=== PATIENT | female | born 1985 | race American Indian/Alaskan Native ===

== ENCOUNTER 2017-10-15 11:49 | Outpatient (CLI) | payer BC | END 2017-10-15 11:50 | disposition home or self-care (01) | LOC: LAB 11:49 | PROVIDERS: ATTEND Obstetrics & Gynecology | DX: Z11.3 Encounter for screening for infections with a predominantly sexual mode of transmission (principal) | CPT/HCPCS: 36415; 86592; 86803; 87350; 87806 ==

== ENCOUNTER 2018-03-28 12:04 | Emergency (ER) | payer BC ==
[2018-03-28 12:13] VITALS: BP 176/107
[2018-03-28] MEDS ORDERED: TESSALON PERLES PO ONE (12:25)
[2018-03-28] MEDS ORDERED: MOTRIN PO ONE (12:25)
--- NOTE | 2018-03-28 13:09 | Emergency Department Report ---
- General Chief Complaint: Upper Respiratory Infection Stated Complaint: CHEST INFECTION Time Seen by Provider: 03/28/18 12:20 Source: patient Mode of arrival: Ambulatory Limitations: No Limitations - History of Present Illness Initial Comments: This is a 33-year-old female nontoxic, well nourished in appearance, no acute signs of distress presents to the ED with c/o of productive cough, sore throat, body aches, rhinorrhea, nasal congestion x1 week. Patient describes productive cough as yellow mucus production. Patient denies any sick contact. Patient denies any recent travels, long car, recent hospital stays. Patient denies any calf pain or calf tenderness. Patient denies any chest pain, short of breath, fever, chills, nausea, vomiting, hemoptysis, numbness, tingling, headache or stiff neck. Patient denies any allergies. PMH includes HTN which she takes HCTZ daily. MD Complaint: cough, sore throat, rhinorrhea, nasal congestion -: week(s) (1) Severity: mild Severity scale (0 -10): 8 Quality: aching Consistency: constant Improves With: nothing Worsens With: nothing Associated Symptoms: rhinorrhea, nasal congestion, sore throat, cough. denies: fever, chills, myalgias, diaphoresis, headache, stiff neck, chest pain, shortness of breath, abdominal pain, nausea, vomiting, diarrhea, dysuria, rash, confusion, right sweats, weight loss, epistaxis, hoarseness, ear pain Treatments Prior to Arrival: none - Related Data Previous Rx's Medication Instructions Recorded Last Taken Type Diphenoxylate/Atropine [Lomotil] 1 tab PO Q4H PRN #10 tablet 10/18/13 Unknown Rx Hyoscyamine Subl [Levsin Sl] 0.125 mg PO Q4-6H PRN #14 tablet 10/18/13 Unknown Rx Ondansetron [Zofran Odt] 4 mg PO Q4-6H PRN #14 tab.rapdis 10/18/13 Unknown Rx Azithromycin [Zithromax Z-RAI] 250 mg PO DAILY #6 tablet 03/28/18 Unknown Rx Benzonatate [Tessalon Perle] 100 mg PO Q8H PRN 20 Days capsule 03/28/18 Unknown Rx Ibuprofen [Motrin] 600 mg PO Q8H PRN #30 tablet 03/28/18 Unknown Rx Allergies Allergy/AdvReac Type Severity Reaction Status Date / Time No Known Allergies Allergy Unverified 03/28/18 12:13 ED Review of Systems ROS: Stated complaint: CHEST INFECTION Other details as noted in HPI Constitutional: denies: chills, fever Eyes: denies: eye pain, eye discharge, vision change ENT: throat pain. denies: ear pain Respiratory: cough. denies: shortness of breath, wheezing Cardiovascular: denies: chest pain, palpitations Endocrine: no symptoms reported Gastrointestinal: denies: abdominal pain, nausea, diarrhea Genitourinary: denies: urgency, dysuria, discharge Musculoskeletal: denies: back pain, joint swelling, arthralgia Skin: denies: rash, lesions Neurological: denies: headache, weakness, paresthesias Psychiatric: denies: anxiety, depression Hematological/Lymphatic: denies: easy bleeding, easy bruising ED Past Medical Hx - Past Medical History Hx Hypertension: Yes Hx Psychiatric Treatment: Yes (anxiety) Hx Asthma: Yes - Surgical History Additional Surgical History: breast reduction-2002,D&C-2017 r/t heavy bleeding - Social History Smoking Status: Never Smoker Substance Use Type: Alcohol - Medications Home Medications: Home Medications Medication Instructions Recorded Confirmed Last Taken Type Diphenoxylate/Atropine [Lomotil] 1 tab PO Q4H PRN #10 tablet 10/18/13 Unknown Rx Hyoscyamine Subl [Levsin Sl] 0.125 mg PO Q4-6H PRN #14 tablet 10/18/13 Unknown Rx Ondansetron [Zofran Odt] 4 mg PO Q4-6H PRN #14 tab.rapdis 10/18/13 Unknown Rx Azithromycin [Zithromax Z-RAI] 250 mg PO DAILY #6 tablet 03/28/18 Unknown Rx Benzonatate [Tessalon Perle] 100 mg PO Q8H PRN 20 Days capsule 03/28/18 Unknown Rx Ibuprofen [Motrin] 600 mg PO Q8H PRN #30 tablet 03/28/18 Unknown Rx ED Physical Exam - General Limitations: No Limitations General appearance: alert, in no apparent distress - Head Head exam: Present: atraumatic, normocephalic - Eye Eye exam: Present: normal appearance Pupils: Present: normal accommodation - ENT ENT exam: Present: mucous membranes moist, normal external ear exam - Expanded ENT Exam Expanded Ear exam: Present: normal external inspection Mouth exam: Present: normal external inspection. Absent: drooling, trismus, muffled voice, tongue normal, tongue elevation, laceration Teeth exam: Present: normal inspection Throat exam: Positive: tonsillar erythema, other (Uvula midline.). Negative: tonsillomegaly, tonsillar exudate, R peritonsillar mass, L peritonsillar mass - Neck Neck exam: Present: normal inspection, full ROM. Absent: tenderness, meningismus, lymphadenopathy - Respiratory Respiratory exam: Present: normal lung sounds bilaterally. Absent: respiratory distress, wheezes, rales, rhonchi, stridor, chest wall tenderness, accessory muscle use, decreased breath sounds, prolonged expiratory - Cardiovascular Cardiovascular Exam: Present: regular rate, normal rhythm, normal heart sounds. Absent: irregular rhythm, systolic murmur, diastolic murmur, rubs, gallop - GI/Abdominal GI/Abdominal exam: Present: soft, normal bowel sounds. Absent: distended, tenderness, guarding, rebound, rigid, diminished bowel sounds - Extremities Exam Extremities exam: Present: normal inspection, full ROM, normal capillary refill - Back Exam Back exam: Present: normal inspection, full ROM - Neurological Exam Neurological exam: Present: alert, oriented X3, normal gait - Psychiatric Psychiatric exam: Present: normal affect, normal mood - Skin Skin exam: Present: warm, dry, intact, normal color. Absent: rash ED Course Vital Signs 03/28/18 03/28/18 12:08 12:55 Temperature 99.2 F Pulse Rate 112 H Respiratory 18 18 Rate Blood Pressure 176/107 O2 Sat by Pulse 99 Oximetry - Reevaluation(s) Reevaluation #1: 03/28/18 13:19 Patient is speaking in full sentences with no signs of distress noted. ED Medical Decision Making - Medical Decision Making This is a 33-year-old female that presents with bronchitis. Patient is stable and was examined by me. Chest x-ray has been obtained and dictated by radiologist with normal exam. Patient is notified of x-ray results with no questions noted. Due to patient having symptoms of upper respiratory infection and worsening I will treat patient empirically with zpak. Patient was instructed to increase hydration, rest and take Motrin for fever episodes. Patient received motrin and tesslone perrls in the ED. Vitals stable. Patient is nonfebrile and normal heart rate. Patient was instructed Follow-up with a primary care doctor in 3-5 days or if symptoms worsen and continue return to emergency room as soon as possible. At time time of discharge, the patient does not seem toxic or ill in appearance. No acute signs of distress noted. Patient agrees to discharge treatment plan of care. No further questions noted by the patient. Critical care attestation.: If time is entered above; I have spent that time in minutes in the direct care of this critically ill patient, excluding procedure time. ED Disposition Clinical Impression: Acute bronchitis Qualifiers: Bronchitis organism: unspecified organism Qualified Code(s): J20.9 - Acute bronchitis, unspecified Disposition: - TO HOME OR SELFCARE Is pt being admited?: No Does the pt Need Aspirin: No Condition: Stable Instructions: Acute Bronchitis (ED) Additional Instructions: Follow-up with a primary care doctor in 3-5 days or if symptoms worsen and continue return to emergency room as soon as possible. Prescriptions: Azithromycin [Zithromax Z-RAI] 250 mg PO DAILY #6 tablet Benzonatate [Tessalon Perle] 100 mg PO Q8H PRN 20 Days capsule PRN Reason: Cough Ibuprofen [Motrin] 600 mg PO Q8H PRN #30 tablet PRN Reason: Pain Referrals: PRIMARY CAREMD [Primary Care Provider] - 3-5 Days RODOLFO PAINTER MD [Staff Physician] - 3-5 Days [facility] [Outside] - 3-5 Days [facility] [Outside] - 3-5 Days Forms: Work/School Release Form(ED)
--- NOTE | 2018-03-28 14:48 | XRay Report ---
FINAL REPORT EXAM: XR CHEST ROUTINE 2V HISTORY: cough COMPARISON: None. TECHNIQUE: Frontal and lateral views of the chest. FINDINGS: The cardiomediastinal silhouette is normal in appearance. The lungs are clear without focal consolidation. There is no pleural effusion or pneumothorax. There is no acute soft tissue or osseous abnormality. IMPRESSION: No acute cardiopulmonary disease.
== END 2018-03-28 14:58 | disposition home or self-care (01) ==
LOC: ED 12:04
DX: J20.9 Acute bronchitis, unspecified (principal); I10 Essential (primary) hypertension; J45.909 Unspecified asthma, uncomplicated; F41.9 Anxiety disorder, unspecified
CPT/HCPCS: 71046; 99283

== ENCOUNTER 2021-10-13 11:39 | Outpatient (CLI) | payer BC, OTHER ==
[2021-10-13] MEDS ORDERED: LACTATED RINGERS 500 ML IV ONE (11:56)
[2021-10-13 13:18] LABS: Bacteria,Urine 2+ /HPF (Negative); Bilirubin,Urine NEG (Negative); Blood,Urine MOD (Negative); Color,Urine Straw (Yellow); Mucus,Urine FEW /HPF; Protein,Urine <15 mg/dL mg/dL (Negative); Urobilinogen,Urine < 2.0 mg/dL (<2.0)
--- NOTE | 2021-10-13 14:22 | Ultrasound Report ---
ULTRASOUND OBSTETRIC LIMITED ULTRASOUND BIOPHYSICAL PROFILE INDICATION / CLINICAL INFORMATION: Well being. Clinical Gestational Age (GA) in weeks, days: 21, 5 TECHNIQUE: Transabdominal. COMPARISON: None available. FINDINGS: BREATHING MOVEMENT = 2 GROSS BODY MOVEMENT = 2 TONE = 2 QUALITATIVE AMNIOTIC FLUID VOLUME = 2 TOTAL BIOPHYSICAL SCORE = 8/8 HEART RATE (beats per minute): 146 ADDITIONAL FINDINGS: None. IMPRESSION: 1. Biophysical Score = 8/8 Signer Name: Josh Pretty DO Signed: 10/13/2021 2:17 PM Workstation Name: [id number]
--- NOTE | 2021-10-13 14:34 | Ultrasound Report ---
US OB transvaginal INDICATION / CLINICAL INFORMATION: cervical length. COMPARISON: None available. FINDINGS/IMPRESSION: Cervical length is noted at 4.3 cm. Signer Name: Josh Pretty DO Signed: 10/13/2021 2:29 PM Workstation Name: [id number]
[2021-10-13] MEDS ORDERED: EPINEPHrine 1 MG/10 ML SYRINGE ONE (16:03)
[2021-10-13] MEDS ORDERED: SODIUM BICARB 8.4% 50 MEQ/50 ML SYRINGE IV ONE (16:03)
[2021-10-14 01:38] VITALS: BP 143/88
== END 2021-10-13 12:00 | disposition home or self-care (01) ==
LOC: TRG 11:39 → APU 11:41 → TRG 12:00 → APU 10-14 02:08
PROVIDERS: ATTEND Obstetrics & Gynecology
DX: O26.852 Spotting complicating pregnancy, second trimester (principal); O13.2 Gestational [pregnancy-induced] hypertension without significant proteinuria, second trimester; M54.50 Low back pain, unspecified; O46.92 Antepartum hemorrhage, unspecified, second trimester; O26.892 Other specified pregnancy related conditions, second trimester; Z3A.21 21 weeks gestation of pregnancy
CPT/HCPCS: 59025; 76817; 76819; 81001; J3490; J0171

== ENCOUNTER 2021-12-11 19:40 | Emergency (ER) | payer SELFPAY ==
[2021-12-11 22:01] VITALS: BP 137/64
== END 2021-12-12 01:20 | disposition left against medical advice (07) ==
LOC: ED 19:40
DX: O26.893 Other specified pregnancy related conditions, third trimester (principal); R06.02 Shortness of breath; R60.0 Localized edema; Z53.21 Procedure and treatment not carried out due to patient leaving prior to being seen by health care provider; Z3A.36 36 weeks gestation of pregnancy; Z59.00 Homelessness unspecified

== ENCOUNTER 2021-12-13 11:54 | Outpatient (CLI) | payer OTHER ==
--- NOTE | 2021-12-13 14:20 | Vascular Lab Report ---
DUPLEX DOPPLER LOWER EXTREMITY VEINS, BILATERAL INDICATION / CLINICAL INFORMATION: Bilateral lower extremity swelling. TECHNIQUE: Duplex doppler imaging was performed through the veins of both lower extremities using gricelda ous compression and other maneuvers. COMPARISON: None available. FINDINGS: RIGHT COMMON FEMORAL VEIN: Negative. RIGHT FEMORAL VEIN: Negative. RIGHT POPLITEAL VEIN: Negative. RIGHT CALF VEINS: Negative. LEFT COMMON FEMORAL VEIN: Negative. LEFT FEMORAL VEIN: Negative. LEFT POPLITEAL VEIN: Negative. LEFT CALF VEINS: Negative. ADDITIONAL FINDINGS: None. IMPRESSION: 1. No sonographic evidence for DVT in either lower extremity. Signer Name: Wesley Randle MD Signed: 12/13/2021 2:15 PM Workstation Name: [id number]
[2021-12-13] MEDS ORDERED: ACETAMINOPHEN 325 MG TAB PO PRN (22:05)
[2021-12-13] MEDS ORDERED: DOCUSATE SODIUM 100 MG CAP PO PRN (22:05)
[2021-12-13] MEDS ORDERED: diphenhydrAMINE 25 MG CAP PO PRN (22:05)
[2021-12-13] MEDS ORDERED: ALUM-MAG HYDROXIDE-SIMETHICONE 200-200-20MG/5ML ORAL LIQD 30 ML PO PRN (22:05)
--- NOTE | 2021-12-13 22:19 | History and Physical Report ---
History of Present Illness Date of examination: 12/13/21 Date of admission: 12/13/21 Chief complaint: "I saw the lung specialist and he would like for me to get an echocardiogram done" History of present illness: @30w3d gestation sent to hospital by office. Pt referred by managed care director for echo and doppler study d/t pt unable to obtain studies outpatient until mid December. 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 Family/Genetic History: hypertension Social history: no significant social history - Obstetrical History Expected Date of Delivery: 02/18/22 Actual Gestation: 30 Week(s) 3 Day(s) : 2 Para: 1 Hx # Term Pregnancies: 0 Number of Pregnancies: 1 Spontaneous Abortions: 0 Induced : 0 Number of Living Children: 1 #1 Infant Gender: Female year: Method of Delivery: Vaginal Gestational age at delivery: 29 Complications: other (PTL) Medications and Allergies Allergies Allergy/AdvReac Type Severity Reaction Status Date / Time codeine Allergy Hives Verified 12/11/21 22:04 Home Medications Medication Instructions Recorded Confirmed Last Taken Type Diphenoxylate/Atropine [Lomotil] 1 tab PO Q4H PRN #10 tablet 10/18/13 Unknown R x Hyoscyamine Subl [Levsin Sl] 0.125 mg PO Q4-6H PRN #14 tablet 10/18/13 Unknown Rx Ondansetron [Zofran Odt] 4 mg PO Q4-6H PRN #14 tab.rapdis 10/18/13 Unknown Rx Azithromycin [Zithromax Z-RAI] 250 mg PO DAILY #6 tablet 03/28/18 Unknown Rx Benzonatate [Tessalon Perle] 100 mg PO Q8H PRN 20 Days capsule 03/28/18 Unknown Rx Ibuprofen [Motrin] 600 mg PO Q8H PRN #30 tablet 03/28/18 Unknown Rx Review of Systems All systems: negative - Vital Signs Vital signs: Vital Signs Pulse Pulse Ox 92 H 99 12/13/21 14:21 12/13/21 14:21 Temp Pulse Resp BP Pulse Ox 90 126/72 96 12/13/21 22:08 12/13/21 15:00 12/13/21 22:08 - Physical Exam Breasts: Positive: deferred Lungs: Positive: Normal air movement Abdomen: Positive: soft, other (obese) Extremities: Positive: normal - Obstetrical FHR: auscultation normal, category 1 Uterine Contraction Monitor Mode: External Uterine Contraction Pattern: Absent Uterine Tone Measurement Phase: Resting Results All other labs normal. O negative Hgb 12.7 Hct 41.6 Plts 299 Rubella Immune RPR nonreactive HbsAg neg HIV neg Hep C negative 24hr protein 266 on 07/22/21 Assessment and Plan Pt reports seeing managed care director for SOB and asthma in . Pt referred for echocardiogram and doppler study of BLE. Pt reports she had unilateral swelling of right leg, now resolved. Doppler study WNL. Echocardiogram completed. Awaiting rayon tester consult for report. POC d/w pt. Questions encouraged and addressed. Pt verbalizes understanding and agrees to POC. Pt states, "I feel so much better since I'm not up running around after my 1yr old". Exam at this time unremarkeable. Pt denies all complaints. VSSAF. Dr Hurtado of [facility] called and aware of pt- agrees to consult. Dr Wright aware. - Patient Problems (1) 30 weeks gestation of Current Visit: Yes Status: Acute Plan to address problem: NST qshift, continuous monitoring if nonreactive (2) High-risk in third trimester Current Visit: Yes Status: Acute Plan to address problem: echocardiogram completed Doppler study completed Cardiology consult pending (3) BMI 50.0-59.9, adult Current Visit: Yes Status: Acute
--- NOTE | 2021-12-14 08:03 | Progress Note ---
Assessment and Plan A: 36 y.o. @ 30.4 wks, SOB, lower extremity swelling. - Patient Problems (1) 30 weeks gestation of Current Visit: Yes Status: Acute Plan to address problem: Continue with NST daily to monitor status. Monitor for s/sx of labor while admitted. (2) Shortness of breath Current Visit: Yes Status: Acute Plan to address problem: Awaiting cardiology read on Echo. Continue to monitor shortness of breath and lower extremity swelling. BP's have been WNL. Currently no s/sx of pre eclampsia. If Echo normal and no further cardiology recommendations, will discharge patient home. Subjective - Subjective Date of service: 12/14/21 Principal diagnosis: IU 30.4 wks, Obs for SOB, swelling Interval history: Pt denies shortness of breath, ARAIZA, blurred vision, chest pain, vaginal bleeding, LOF, ctxs. States that there is movement. Pt states that her shortness of breath has stopped. "I feel like I was just tired and needed some sleep." Pt is eager to go home to her other child who needs a lot of care. We discussed that we have to wait for the Echo to be read and cardiology recommendations. Pt states that she understands. Patient reports: movement normal, no new complaints, no loss of fluid, no vaginal bleeding, no contractions Objective - Vital Signs Vital Signs: Vital Signs - 12hr 12/13/21 12/13/21 12/13/21 21:49 21:58 22:03 Pulse Rate 97 H 94 H 91 H O2 Sat by Pulse 98 97 97 Oximetry 12/13/21 12/13/21 12/13/21 22:08 22:13 22:18 Pulse Rate 90 93 H 94 H O2 Sat by Pulse 96 96 96 Oximetry 12/13/21 12/13/21 12/13/21 22:23 22:28 22:33 Pulse Rate 90 103 H 50 L O2 Sat by Pulse 97 96 87 Oximetry - Exam Cardiovascular: Regular rate Lungs: Normal air movement Abdomen: Present: normal appearance, soft Uterus: Present: normal FHR: category 1 Uterine Contraction Monitor Mode: External Uterine Contraction Pattern: Absent Extremities: edema (+1 edema noted to bilateral lower extremities.)
[2021-12-14] MEDS ORDERED: PRENATAL VIT27-FE FUMARATE-FOLIC ACID VIT TAB PO SCH (10:00)
--- NOTE | 2021-12-14 14:06 | Consultation ---
History of Present Illness Consult date: 12/14/21 Requesting physician: SERGIO HECTOR Consult reason: other (Echocardiogram) History of present illness: Pt is a 36-year-old female 30.4 wks who presented with complaints of dyspnea with exertion x 1 month. Pt states her issues started last year after she was diagnosed with COVID-19 PNA (January 2021). She feels like her breathing never got back to baseline, then she was diagnosed with COVID again in July. She reports that for the past month or so, she has had more difficulty exerting herself and staying active. She denies SOB at rest. She denies orthopnea or PND and states lying flat actually helps her breathing. She does have some swelling in her lower extremities when standing or walking, but it improves with elevation. No additional cardiac complaints. Past History Past Medical History: hypertension, other (asthma) Past Surgical History: denies: CABG, PTCA Social history: denies: smoking, alcohol abuse Family history: CAD, diabetes, stroke Medications and Allergies Allergies Allergy/AdvReac Type Severity Reaction Status Date / Time codeine Allergy Hives Verified 12/11/21 22:04 Home Medications Medication Instructions Recorded Confirmed Last Taken Type Diphenoxylate/Atropine [Lomotil] 1 tab PO Q4H PRN #10 tablet 10/18/13 Unknown Rx Hyoscyamine Subl [Levsin Sl] 0.125 mg PO Q4-6H PRN #14 tablet 10/18/13 Unknown Rx Ondansetron [Zofran Odt] 4 mg PO Q4-6H PRN #14 tab.rapdis 10/18/13 Unknown Rx Azithromycin [Zithromax Z-RAI] 250 mg PO DAILY #6 tablet 03/28/18 Unknown Rx Benzonatate [Tessalon Perle] 100 mg PO Q8H PRN 20 Days capsule 03/28/18 Unknown Rx Ibuprofen [Motrin] 600 mg PO Q8H PRN #30 tablet 03/28/18 Unknown Rx Active Meds: Active Medications Acetaminophen (Acetaminophen 325 Mg Tab) 650 mg PO Q4H PRN PRN Reason: Pain MILD(1-3)/Fever >100.5/ARAIZA Al Hydrox/Mg Hydrox/Simethicone (Alum-Mag Hydroxide-Simethicone [id number]/5ml Oral Liqd 30 Ml) 30 ml PO Q6H PRN PRN Reason: Indigestion Diphenhydramine HCl (Diphenhydramine 25 Mg Cap) 25 mg PO QHS PRN PRN Reason: Insomnia Docusate Sodium (Docusate Sodium 100 Mg Cap) 100 mg PO Q12H PRN PRN Reason: Constipation Last Admin: 12/14/21 09:16 Dose: 100 mg Multivitamins/Iron/Calcium ( Iwd11-Hw Fumarate-Folic Acid Vit Tab) 1 each PO QDAY KITTY Last Admin: 12/14/21 09:16 Dose: 1 each Review of Systems Constitutional: no fever, no chills Ears, nose, mouth and throat: no nasal congestion, no sore throat Cardiovascular: edema, shortness of breath, dyspnea on exertion, no chest pain, no orthopnea, no palpitations, no syncope, no lightheadedness, no paroxysmal nocturnal dyspnea, no claudication Respiratory: shortness of breath, dyspnea on exertion, no cough Gastrointestinal: no abdominal pain, no nausea, no vomiting Genitourinary Female: no dysuria Musculoskeletal: no neck stiffness, no neck pain, no myalgias Integumentary: no rash, no wounds Neurological: no numbness, no tingling, no seizures, no syncope, no vertigo, no headaches Endocrine: no polydipsia, no polyuria Hematologic/Lymphatic: no easy bruising, no easy bleeding Allergic/Immunologic: no anaphylaxis Physical Examination Vital Signs Pulse Pulse Ox 92 H 99 12/13/21 14:21 12/13/21 14:21 General appearance: no acute distress HEENT: Positive: EOMI, Normocephaly, Mucus Membranes Moist Neck: Positive: neck supple, trachea midline. Negative: JVD/HJR Cardiac: Positive: Reg Rate and Rhythm, S1/S2. Negative: Audible Murmur Lungs: Positive: Decreased Breath Sounds Neuro: Positive: Grossly Intact Abdomen: Positive: Soft. Negative: Tender Skin: Negative: Rash Musculoskeletal: No Pain Extremities: Present: edema (trace BLE), warm Results - Imaging and Cardiology Echo: report reviewed Assessment and Plan Echo reviewed - normal LVEF, no significant valvular abnormalities. BLE Dopplers neg for DVT. Recommend compression stockings for LE swelling. Currently stable cardiac status. No objection to discharge from a Cardiology standpoint. Findings and plan discussed with pt at bedside. All questions answered. Pt seen in conjunction with Dr. Bryant, who agrees with the assessment and plan of care. - Patient Problems (1) 30 weeks gestation of Current Visit: Yes Status: Acute (2) Hx of preeclampsia, prior , currently Current Visit: Yes Status: Chronic (3) Morbid obesity Current Visit: Yes Status: Chronic (4) Asthma Current Visit: Yes Status: Chronic Qualifiers: Asthma severity: mild Asthma complication type: uncomplicated (5) Chronic venous insufficiency Current Visit: Yes Status: Suspected (6) Hx of essential hypertension Current Visit: Yes Status: Chronic (7) History of COVID-19 Current Visit: Yes Status: Chronic
--- NOTE | 2021-12-14 16:52 | Event Note ---
Date: 12/14/21 ECHO has been read by cardiology. Now awaiting clearance for d/c home. Appears to be normal.
--- NOTE | 2021-12-14 18:41 | Discharge Summary ---
Providers - Providers Date of Admission: 12/13/2021 Date of discharge: 12/14/21 Attending physician: OUMOU MACK MD 12/13/21 19:14 Consult to Cardiology [CONS] Urgent Consulting Provider: ARTEM MURRAY Reason For Exam: Dyspnea 12/13/21 22:05 Consult to Physician [CONS] Routine Comment: Consulting Provider: ARTI EMERY Physician Instructions: Reason For Exam: echocardiogram Primary care physician: OUMOU MACK MD Hospitalization Reason for admission: observation (d/t swelling and shortness of breath) Discharge diagnosis: other (Undelivered @ 30.3 wks. ) Pertinent studies: Echo and Doppler studies completed and resulted as normal. Hospital course: Pt is doing well and desires discharge home. She was seen by the ostrich farm worker (Dr. Emery/Chris LEDESMA). Spoke with Chris LEDESMA from [facility]. Chris LEDESMA states that from the cardiology standpoint patient is cleared for discharge home. Her echo and Doppler studies resulted as normal. Pt states that she feels great. She denies vaginal bleeding, LOF, ctxs, shortness of breath, chest pain, feeling lightheaded or dizzy. Her NST's have been category 1 with no contractions noted, and pt states that there is "a lot of movement." Her VSS have been stable throughout her stay. Pt was discharged home in good condition, ambulatory, and undelivered. Condition at discharge: Good Disposition: 01 HOME / SELF CARE / HOMELESS Plan - Provider Discharge Summary Activity: routine Diet: routine Instructions: routine Additional instructions: [] Smoking cessation referral if applicable(refer to patient education folder for contact #) [] Refer to [facility] Booklet Call your doctor immediately for: * Fever > 100.5 * Heavy vaginal bleeding ( >1 pad per hour) * Severe persistent headache * Shortness of breath * Reddened, hot, painful area to leg or breast * Drainage or odor from incision. * Keep incision clean and dry at all times and follow doctor's instructions regarding bathing/showering - Follow up plan Follow up: OUMOU MACK MD [Primary Care Provider] - 7 Days (- Please keep your scheduled appointments with [facility], [facility], and the pulomonologist. - Please give our office at call if you experience decreased movement, vaginal bleeding, you think your water broke, painful regular contractions, chest pain, shortness of breath, feelings of being dizzy or lightheaded. - Should you have any questions or concerns after discharge, please do not hesitate to call our office at [phone]. )
[2021-12-14 18:44] VITALS: BP 98/53
== END 2021-12-14 18:55 | disposition home or self-care (01) ==
LOC: TRG 11:54 → LD 11:57 → TRG 12-14 18:55
PROVIDERS: ATTEND Student in an Organized Health Care Education/Training Program
DX: O26.893 Other specified pregnancy related conditions, third trimester (principal); Z20.822 Contact with and (suspected) exposure to COVID-19; Z3A.31 31 weeks gestation of pregnancy
CPT/HCPCS: 59025; 93970; C8929; U0003; 93306

== ENCOUNTER 2022-02-10 20:22 | Inpatient (IN) | payer BC, OTHER ==
[2022-02-10] MEDS ORDERED: LIDOCAINE (2%) 20 MG/1 ML VIAL 20 ML MDV INFILTRATI ONE (20:24)
[2022-02-10] MEDS ORDERED: TERBUTALINE 1 MG/1 ML INJ SUB-Q PRN (20:24)
[2022-02-10] MEDS ORDERED: BUTORPHANOL 2 MG/1 ML INJ IV PRN (20:24)
[2022-02-10] MEDS ORDERED: PROMETHAZINE 25 MG TAB PO PRN (20:24)
[2022-02-10] MEDS ORDERED: CARBOPROST TROMETHAMINE 250 MCG/1 ML INJ IM PRN (20:24)
[2022-02-10] MEDS ORDERED: MINERAL OIL 30 ML ORAL LIQD PO PRN (20:24)
[2022-02-10] MEDS ORDERED: ONDANSETRON 4 MG/2 ML INJ IV PRN (20:24)
[2022-02-10] MEDS ORDERED: OXYTOCIN 10 UNIT/1 ML INJ IM PRN (20:24)
[2022-02-10] MEDS ORDERED: fentaNYL 100 MCG/2 ML INJ IV PRN (20:24)
[2022-02-10] MEDS ORDERED: LOPERAMIDE 2 MG CAP PO PRN (20:24)
[2022-02-10] MEDS ORDERED: miSOPROStol 200 MCG TAB PR PRN (20:24)
[2022-02-10] MEDS ORDERED: ACETAMINOPHEN 325 MG TAB PO PRN (20:24)
[2022-02-10] MEDS ORDERED: NALOXONE 0.4 MG/1 ML INJ IV PRN (20:24)
[2022-02-10] MEDS ORDERED: ePHEDrine SULFATE 50 MG/1 ML INJ IV PRN (20:24)
[2022-02-10] MEDS ORDERED: LACTATED RINGERS 1,000 ML IV SCH (20:30)
--- NOTE | 2022-02-10 20:36 | History and Physical Report ---
History of Present Illness Date of examination: 02/10/22 Date of admission: 02/10/22 20:22 Chief complaint: I'm here for my induction. History of present illness: Pt is a @ 39 wks who presents to labor and delivery for an IOL per [facility] recommendation d/t cHTN and BMI 54+. Her cHTN was controlled initially with hydrochlorothiazide, but that medication was stopped and her blood pressures were WNL without medication. She had a 24 hr urine that resulted as 266 on 07/22/2021. Her last BPP was 8/8 on 01/31. And her last growth u/s was on 01/24 and was 5-11 (21%). Pt with some shortness of breath this being followed by pulmonology. No changes in this shortness of breath. EDC Confirmation: 02/18/2022 Gestational Age: 38.6 weeks on admission Past History : 2 Term Births: 0 Premature Births: 1 Living Children: 1 Para: 1 Mult. Births: 0 Prev : 0 Aborta: 0 Elect. Ab: 0 Spont. Ab: 0 Ectopics: 0 # 1 Delivery date: 11/2020 Weeks Gestation: 29 labor: yes Delivery type: Delivery location: [facility] Sex: Female Comments: Came in in labor. Went to hospital for contractions and bleeding. Had mag for labor. Possible elevated blood pressures. Pre eclampsia?. 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 % Sun Exposure: frequently Family History Risk Factors: Family History of IA in 1 Female Relative Age < 65: yes Family History of IA in 1 Male Relative Age < 55: yes No Dietary Counseling Reason: pn yes PAP Smear History: Date of Last PAP Smear: 07/12/2021 Results: Normal PAP Smear History: Date of Last PAP Smear: 07/04/2021 Results: normal PAP Smear History: Date of Last PAP Smear: 07/04/2021 Results: normal Alcohol Use: no Drug Use: no Past Medical History Anesthesia Complications: negative Anemia: positive Autoimmune Disorder: negative Bleeding Disorder: negative Blood Transfusions: negative Breast Disease: negative Diabetes: negative Heart Disease: negative Hypertension: positive Hepatitis/Liver Disease: negative Kidney Disease/UTI: negative Neurologic/Epilepsy/Migraines: negative Phlebitis/Varicosities: negative Psychiatric: negative Pulmonary Disease/Asthma: negative Thyroid Disease: negative Hospitalizations: negative Surgery (Non-agronomy manager): negative Abnormal PAP: negative SAVANNAH Exposure: negative Infertility: negative Uterine Anomaly: negative Uterine Surgery (not C/S): negative Other Gynecologic Problems: negative Social Hx: Patient is single Smoking History: Patient has never smoked. Infection History Hx of STD: none HIV Risk Eval: no Hepatitis B Risk Eval: low risk Personal hx. of genital herpes: yes Partner hx. of genital herpes: yes Rash, Viral, or Febrile illness since last LMP? no Varicella/Chicken Pox Status: Previous Disease TB Risk: no Genetic History ADVANCED MATERNAL AGE Congenital Heart Defect: Mom: no Dad: no Db Disease: Mom: no Dad: no Thalassemia Mom: no Dad: no Neural Tube Defect Mom: no Dad: no Down's Syndrome Mom: no Dad: no Jamie-Sachs Mom: no Dad: no Sickle Cell Disease/Trait Mom: no Dad: no Hemophilia Mom: no Dad: no Muscular Dystrophy Mom: no Dad: no Cystic Fibrosis Mom: no Dad: no [place] Chorea Mom: no Dad: no Mental Retardation Mom: no Dad: no Fragile X Mom: no Dad: no Other Genetic/Chromosomal Disorder Mom: no Dad: no Child w/other defect Mom: no Dad: no Enviromental Exposures Xray Exposure: no Medication, drug, or alcohol use since LMP: no Chemical/Other Exposure: no Exposure to Cat Liter: no Hx of Parvovirus (Fifth Disease): no Occupational Exposure to Children: none Current Allergies: CODEINE (Critical) Past History Past Medical History: asthma, hypertension, other (Anxiety, Hx of COVID) Past Surgical History: D&C, other (Breast reduction) 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 Family/Genetic History: heart disease Social history: no significant social history - Obstetrical History Expected Date of Delivery: 02/18/22 Actual Gestation: 38 Week(s) 6 Day(s) : 2 Para: 1 Hx # Term Pregnancies: 0 Number of Pregnancies: 1 (At 29 wks) Spontaneous Abortions: 0 Induced : 0 Number of Living Children: 1 Medications and Allergies Allergies Allergy/AdvReac Type Severity Reaction Status Date / Time codeine Allergy Hives Verified 12/11/21 22:04 Home Medications Medication Instructions Recorded Confirmed Last Taken Type Diphenoxylate/Atropine [Lomotil] 1 tab PO Q4H PRN #10 tablet 10/18/13 Unknown Rx Hyoscyamine Subl [Levsin Sl] 0.125 mg PO Q4-6H PRN #14 tablet 10/18/13 Unknown Rx Ondansetron [Zofran Odt] 4 mg PO Q4-6H PRN #14 tab.rapdis 10/18/13 Unknown Rx Azithromycin [Zithromax Z-RAI] 250 mg PO DAILY #6 tablet 03/28/18 Unknown Rx Benzonatate [Tessalon Perle] 100 mg PO Q8H PRN 20 Days capsule 03/28/18 Unknown Rx Ibuprofen [Motrin] 600 mg PO Q8H PRN #30 tablet 03/28/18 Unknown Rx Active Meds: Active Medications Ephedrine Sulfate (Ephedrine Sulfate 50 Mg/1 Ml Inj) 10 mg IV Q2M PRN PRN Reason: Hypotension Mineral Oil (Mineral Oil 30 Ml Oral Liqd) 30 ml PO QHS PRN PRN Reason: Constipation Terbutaline Sulfate (Terbutaline 1 Mg/1 Ml Inj) 0.25 mg SUB-Q ONCE PRN PRN Reason: Hyperstimulation/Hypertonicity Review of Systems All systems: negative Respiratory: shortness of breath - Vital Signs Vital signs: Pt denies ARAIZA, blurred vision, spots before her eyes, chest pain, and upper abdominal pain. Pt has some shortness of breath, but has had this shortness of breath throughout the and it has not gotten worse - Physical Exam Cardiovascular: Regular rate Lungs: Positive: Normal air movement Abdomen: Positive: normal appearance, soft Genitourinary (Female): Positive: normal external genitalia, normal perenium Vulva: both: normal (No lesions seen on exam.) Uterus: Positive: enlarged (Obese, gravid abdomen) Extremities: Positive: edema (+2 pitting edema to hands and feet) Deep Tendon Reflex Grade: Normal +2 - Obstetrical FHR: category 1 Uterine Contraction Monitor Mode: External Cervical Dilatation: 1.5 (Posterior, soft) Cervical Effacement Percentage: 50 station: -3 Results All other labs normal. GBS NEGATIVE O NEGATIVE ANTIBODY SCREEN NEGATIVE HEP B NEGATIVE HEP C NEGATIVE RUBELLA IMMUNE Assessment and Plan A: 36 y.o. @ 38.6 wks, IOL d/t cHTN. Morbid obesity. - Patient Problems (1) with 38 completed weeks gestation Current Visit: Yes Status: Acute Plan to address problem: Monitor status through EFM. (2) Morbid obesity Current Visit: No Status: Chronic Plan to address problem: Consider internal monitor placement after AROM. - When able to safely AROM patient during labor process. (3) HTN (hypertension) Current Visit: Yes Status: Chronic Qualifiers: Hypertension type: primary hypertension Qualified Code(s): I10 - Essential (primary) hypertension Plan to address problem: Admit to labor and delivery. Initiate IV. Draw admission labs. Initiate IOL with Cervidil. Monitor blood pressures. Pain management: IV pain medication and epidural when more active. Monitor for s/sx of Pre-eclampsia.
[2022-02-10] MEDS ORDERED: OXYTOCIN DRIP 30 UNITS/500 ML BAG IV SCH (21:00)
[2022-02-10] MEDS ORDERED: DINOPROSTONE 10 MG VAG SUPP VG ONE (22:00)
[2022-02-10 22:46] LABS: Hematocrit 30.5 % (30.3-42.9); Hemoglobin 9.3 gm/dl (10.1-14.3); Mean Corpuscular HGB Conc 31 % (30-34); Mean Corpuscular Volume 72 fl (79-97); Platelet Count 247 K/mm3 (140-440); Red Blood Count 4.22 M/mm3 (3.65-5.03); Red Cell Distribution Width 16.1 % (13.2-15.2)
--- NOTE | 2022-02-10 23:35 | Ultrasound Report ---
US OB limited INDICATION / CLINICAL INFORMATION: presentation COMPARISON: OB ultrasound 10/13/2021. TECHNIQUE: Using a transcutaneous probe, multiple grayscale, color Doppler, and spectral Doppler imag es of the uterus and fetus were captured and stored. FINDINGS: Clinical estimated gestational age based on LMP of 05/14/2021 is 38 weeks 6 days. Single cephalic fetus is present, rate of 160 bpm. IMPRESSION: 1. Fetus lies in cephalic orientation at the time of image acquisition. Signer Name: Fab Paz II, MD Signed: 02/10/2022 11:30 PM Workstation Name: [id number]
[2022-02-11] MEDS ORDERED: ZOLPIDEM 5 MG TAB PO PRN (00:59)
[2022-02-11 02:09] LABS: Alanine Aminotransferase 13 units/L (7-56)
[2022-02-11 04:20] LABS: Uric Acid 5.3 mg/dL (3.5-7.6)
--- NOTE | 2022-02-11 04:52 | Event Note ---
Date: 02/11/22 Received a call from RN that patient was crying out in pain requesting an epidural. Upon arrival to room, patient was crying laying on her side stating that she can not take the pain any longer. She was given Stadol and Fentanyl IV without relief Cervical exam /-2, no bag felt. Anesthesia being called to evaluate. Cervidil removed. Will start Pitocin and re-examine cervix once epidural placed.
[2022-02-11] MEDS ORDERED: NALOXONE 0.4 MG/1 ML INJ IV PRN (04:57)
[2022-02-11] MEDS ORDERED: ePHEDrine SULFATE 50 MG/1 ML INJ IV PRN (04:57)
[2022-02-11] MEDS ORDERED: fentaNYL-BUPIV 2 MCG/ML-0.125% 200 MCG/100 ML BAG EPIDURAL SCH (04:57)
--- NOTE | 2022-02-11 05:41 | Anesthesia Consultation ---
Anesthesia Consult and Med Hx Date of service: 02/11/22 - Airway Anesthetic Teeth Evaluation: Good ROM Head & Neck: Adequate Mental/Hyoid Distance: Adequate Mallampati Class: Class III Intubation Access Assessment: Possibly Difficult - Pulmonary Exam CTA: Yes - Cardiac Exam Cardiac Exam: RRR - Pre-Operative Health Status ASA Pre-Surgery Classification: ASA2 Proposed Anesthetic Plan: Epidural - Pulmonary Hx Smoking: No Hx Asthma: Yes Hx Respiratory Symptoms: No SOB: No COPD: No Home Oxygen Therapy: No Hx Pneumonia: No Hx Sleep Apnea: No - Cardiovascular System Hx Hypertension: Yes Hx Coronary Artery Disease: No Hx Heart Attack/AMI: No Hx Angina: No Hx Percutaneous Transluminal Coronary Angioplasty (PTCA): No Hx Cardia Arrhythmia: No Hx Pacemaker: No Hx Internal Defibrillator: No Hx Valvular Heart Disease: No Hx Heart Murmur: No Hx Peripheral Vascular Disease: No - Central Nervous System Hx Neuromuscular Disorder: No Hx Seizures: No CVA: No Hx Back Pain: No Hx Psychiatric Problems: Yes (depression) - Gastrointestinal Hx Ulcer: No Hx Gastroesophageal Reflux Disease: No - Endocrine Hx Renal Disease: No Hx End Stage Renal Disease: No Hx Cirrhosis: No Hx Liver Disease: No Hx Insulin Dependent Diabetes: No Hx Non-Insulin Dependent Diabetes: No Hx Thyroid Disease: No Hx Hypothyroidism: No Hx Hyperthyroidism: No - Hematic Hx Anemia: No Hx Sickle Cell Disease: No - Other Systems Hx Alcohol Use: No Hx Substance Use: No Hx Cancer: No Hx Obesity: No
--- NOTE | 2022-02-11 05:41 | Anesthesia Day of Surgery ---
Anesthesia Day of Surgery - Day of Surgery Patient Examined: Yes Patient H&P Reviewed: Yes Patient is NPO: Yes Beta Blockers: No Cardiac Clearance: No Pulmonary Clearance: No Huber's Test: Negative
--- NOTE | 2022-02-11 05:43 | Progress Note ---
Labor Epidural - Labor Epidural Start Time: 05:10 Stop Time: 05:22 Performed by:: GEM ARMANDO Procedure: Epidural Requested for Labor Pain. H&P and PT Chart reviewed and consent obtained. Time out performed and the procedure was explained, all questions answered. Patient was placed in a sitting position with monitors applied. The PTs back was prepped and draped in usual sterile fashion. The Skin was localized with 3 mL of 1% lidocaine at L3-L4. A 17-gauge Touhy epidural needle was advanced to GIANNA with saline at 8 cm and no blood/CSF was noted via epidural needle. Epidural catheter was advanced initially but failed to pass. A second attempt was made and successfully passed+ to 12 cm. There was negative aspiration for blood and CSF in the catheter and negative response to a test dose of 3 ml 1.5% lidocaine w/ Epi and a sterile dressing was applied Patient tolerated the procedure well and there were no immediate complications noted.
--- NOTE | 2022-02-11 06:22 | Progress Note ---
Assessment and Plan A: 36 y.o. @ 39 wks, active labor, cHTN. Internal monitoring. Uncomfortable with epidural. P: Anesthesia at bedside evaluating patient. Anticipate . Continue to monitor blood pressures. Continue to monitor for s/sx of Pre-eclampsia. - Patient Problems (1) with 38 completed weeks gestation Current Visit: Yes Status: Acute (2) Morbid obesity Current Visit: No Status: Chronic (3) HTN (hypertension) Current Visit: Yes Status: Chronic Qualifiers: Hypertension type: primary hypertension Qualified Code(s): I10 - Essential (primary) hypertension Subjective - Subjective Date of service: 02/11/22 Principal diagnosis: IUP @ 39 weeks, active labor, cHTN Interval history: Pt uncomfortable with epidural. States pain on right side. Anesthesia at bedside giving a bolus. Patient reports: movement normal, contractions, other (Feeling vaginal pressure.) Objective - Vital Signs Vital Signs: Vital Signs - 12hr 02/10/22 02/10/22 02/10/22 21:06 21:07 21:11 Temperature Pulse Rate 88 85 91 H Respiratory Rate Blood Pressure 152/75 O2 Sat by Pulse 99 100 Oximetry O2 Sat by Pulse Oximetry [ Posterior Bilateral Throughout] 02/10/22 02/10/22 02/10/22 21:16 21:21 21:26 Temperature Pulse Rate 87 83 83 Respiratory Rate Blood Pressure O2 Sat by Pulse 100 99 98 Oximetry O2 Sat by Pulse Oximetry [ Posterior Bilateral Throughout] 02/10/22 02/10/22 02/10/22 21:31 21:36 21:41 Temperature Pulse Rate 76 90 84 Respiratory Rate Blood Pressure O2 Sat by Pulse 99 100 100 Oximetry O2 Sat by Pulse Oximetry [ Posterior Bilateral Throughout] 02/10/22 02/10/22 02/10/22 21:46 21:51 21:52 Temperature Pulse Rate 91 H 91 H Respiratory Rate Blood Pressure O2 Sat by Pulse 100 97 Oximetry O2 Sat by Pulse 98 Oximetry [ Posterior Bilateral Throughout] 02/10/22 02/10/22 02/10/22 21:56 21:59 22:01 Temperature 98.2 F Pulse Rate 90 80 80 Respiratory 18 Rate Blood Pressure 118/59 O2 Sat by Pulse 98 100 Oximetry O2 Sat by Pulse Oximetry [ Posterior Bilateral Throughout] 02/10/22 02/10/22 02/10/22 22:06 22:11 22:16 Temperature Pulse Rate 81 80 77 Respiratory Rate Blood Pressure O2 Sat by Pulse 98 98 99 Oximetry O2 Sat by Pulse Oximetry [ Posterior Bilateral Throughout] 02/10/22 02/10/22 02/10/22 22:21 22:25 22:41 Temperature Pulse Rate 88 95 H Respiratory Rate Blood Pressure O2 Sat by Pulse 100 57 L 87 Oximetry O2 Sat by Pulse Oximetry [ Posterior Bilateral Throughout] 02/10/22 02/10/22 02/10/22 22:42 22:47 22:52 Temperature Pulse Rate 83 85 77 Respiratory Rate Blood Pressure O2 Sat by Pulse 98 98 100 Oximetry O2 Sat by Pulse Oximetry [ Posterior Bilateral Throughout] 02/10/22 02/10/22 02/10/22 23:01 23:06 23:11 Temperature Pulse Rate 73 79 84 Respiratory Rate Blood Pressure 158/75 O2 Sat by Pulse 98 98 Oximetry O2 Sat by Pulse Oximetry [ Posterior Bilateral Throughout] 02/10/22 02/10/22 02/10/22 23:16 23:21 23:26 Temperature Pulse Rate 95 H 92 H 76 Respiratory Rate Blood Pressure O2 Sat by Pulse 98 98 99 Oximetry O2 Sat by Pulse Oximetry [ Posterior Bilateral Throughout] 02/10/22 02/10/22 02/10/22 23:31 23:36 23:41 Temperature Pulse Rate 77 78 75 Respiratory Rate Blood Pressure O2 Sat by Pulse 98 98 99 Oximetry O2 Sat by Pulse Oximetry [ Posterior Bilateral Throughout] 02/10/22 02/10/22 02/10/22 23:46 23:51 23:56 Temperature Pulse Rate 80 71 71 Respiratory Rate Blood Pressure O2 Sat by Pulse 99 99 99 Oximetry O2 Sat by Pulse Oximetry [ Posterior Bilateral Throughout] 02/10/22 02/11/22 02/11/22 23:59 00:01 00:02 Temperature Pulse Rate 73 82 Respiratory Rate Blood Pressure 134/64 O2 Sat by Pulse 91 94 Oximetry O2 Sat by Pulse Oximetry [ Posterior Bilateral Throughout] 02/11/22 02/11/22 02/11/22 00:06 00:11 00:16 Temperature Pulse Rate 73 70 99 H Respiratory Rate Blood Pressure O2 Sat by Pulse 97 100 99 Oximetry O2 Sat by Pulse Oximetry [ Posterior Bilateral Throughout] 02/11/22 02/11/22 02/11/22 00:21 00:26 00:31 Temperature Pulse Rate 76 68 70 Respiratory Rate Blood Pressure O2 Sat by Pulse 99 100 100 Oximetry O2 Sat by Pulse Oximetry [ Posterior Bilateral Throughout] 02/11/22 02/11/22 02/11/22 00:36 00:41 00:46 Temperature Pulse Rate 69 69 71 Respiratory Rate Blood Pressure O2 Sat by Pulse 100 99 99 Oximetry O2 Sat by Pulse Oximetry [ Posterior Bilateral Throughout] 02/11/22 02/11/22 02/11/22 00:51 00:56 00:59 Temperature Pulse Rate 65 68 82 Respiratory Rate Blood Pressure 138/61 O2 Sat by Pulse 98 98 93 Oximetry O2 Sat by Pulse Oximetry [ Posterior Bilateral Throughout] 02/11/22 02/11/22 02/11/22 01:01 01:06 01:10 Temperature Pulse Rate 71 78 72 Respiratory Rate Blood Pressure O2 Sat by Pulse 99 99 94 Oximetry O2 Sat by Pulse Oximetry [ Posterior Bilateral Throughout] 02/11/22 02/11/22 02/11/22 01:11 01:16 01:21 Temperature Pulse Rate 71 78 83 Respiratory Rate Blood Pressure O2 Sat by Pulse 100 99 99 Oximetry O2 Sat by Pulse Oximetry [ Posterior Bilateral Throughout] 02/11/22 02/11/22 02/11/22 01:53 01:58 01:59 Temperature Pulse Rate 76 67 69 Respiratory Rate Blood Pressure 134/67 O2 Sat by Pulse 97 98 Oximetry O2 Sat by Pulse Oximetry [ Posterior Bilateral Throughout] 02/11/22 02/11/22 02/11/22 02:02 02:03 02:08 Temperature 98.2 F Pulse Rate 70 71 Respiratory 18 Rate Blood Pressure O2 Sat by Pulse 99 99 99 Oximetry O2 Sat by Pulse Oximetry [ Posterior Bilateral Throughout] 02/11/22 02/11/22 02/11/22 02:13 02:18 02:23 Temperature Pulse Rate 72 75 69 Respiratory Rate Blood Pressure O2 Sat by Pulse 99 100 96 Oximetry O2 Sat by Pulse Oximetry [ Posterior Bilateral Throughout] 02/11/22 02/11/22 02/11/22 02:28 02:33 02:38 Temperature Pulse Rate 75 69 71 Respiratory Rate Blood Pressure O2 Sat by Pulse 97 99 98 Oximetry O2 Sat by Pulse Oximetry [ Posterior Bilateral Throughout] 02/11/22 02/11/22 02/11/22 02:43 02:48 02:53 Temperature Pulse Rate 71 67 75 Respiratory Rate Blood Pressure O2 Sat by Pulse 99 99 100 Oximetry O2 Sat by Pulse Oximetry [ Posterior Bilateral Throughout] 02/11/22 02/11/22 02/11/22 02:58 02:59 03:03 Temperature Pulse Rate 69 68 84 Respiratory Rate Blood Pressure 136/71 O2 Sat by Pulse 99 97 Oximetry O2 Sat by Pulse Oximetry [ Posterior Bilateral Throughout] 02/11/22 02/11/22 02/11/22 03:08 03:13 03:18 Temperature Pulse Rate 80 75 88 Respiratory Rate Blood Pressure O2 Sat by Pulse 100 100 97 Oximetry O2 Sat by Pulse Oximetry [ Posterior Bilateral Throughout] 02/11/22 02/11/22 02/11/22 03:23 03:28 03:33 Temperature Pulse Rate 80 81 75 Respiratory Rate Blood Pressure O2 Sat by Pulse 98 99 97 Oximetry O2 Sat by Pulse Oximetry [ Posterior Bilateral Throughout] 02/11/22 02/11/22 02/11/22 03:38 03:43 03:48 Temperature Pulse Rate 81 80 100 H Respiratory Rate Blood Pressure O2 Sat by Pulse 95 98 99 Oximetry O2 Sat by Pulse Oximetry [ Posterior Bilateral Throughout] 02/11/22 02/11/22 02/11/22 03:52 04:45 04:48 Temperature Pulse Rate 109 H 73 76 Respiratory Rate Blood Pressure O2 Sat by Pulse 92 98 94 Oximetry O2 Sat by Pulse Oximetry [ Posterior Bilateral Throughout] 02/11/22 02/11/22 02/11/22 04:50 04:55 04:59 Temperature Pulse Rate 75 82 69 Respiratory Rate Blood Pressure O2 Sat by Pulse 98 99 92 Oximetry O2 Sat by Pulse Oximetry [ Posterior Bilateral Throughout] 02/11/22 02/11/22 02/11/22 05:00 05:05 05:06 Temperature Pulse Rate 78 104 H 107 H Respiratory Rate Blood Pressure O2 Sat by Pulse 97 98 94 Oximetry O2 Sat by Pulse Oximetry [ Posterior Bilateral Throughout] 02/11/22 02/11/22 02/11/22 05:09 05:10 05:15 Temperature Pulse Rate 82 81 88 Respiratory Rate Blood Pressure 141/97 O2 Sat by Pulse 98 98 Oximetry O2 Sat by Pulse Oximetry [ Posterior Bilateral Throughout] 02/11/22 02/11/22 02/11/22 05:20 05:24 05:25 Temperature Pulse Rate 83 81 102 H Respiratory Rate Blood Pressure 143/77 O2 Sat by Pulse 99 98 Oximetry O2 Sat by Pulse Oximetry [ Posterior Bilateral Throughout] 02/11/22 02/11/22 02/11/22 05:29 05:30 05:35 Temperature Pulse Rate 86 82 86 Respiratory Rate Blood Pressure 125/63 122/58 O2 Sat by Pulse 98 97 Oximetry O2 Sat by Pulse Oximetry [ Posterior Bilateral Throughout] 02/11/22 02/11/22 02/11/22 05:40 05:41 05:44 Temperature Pulse Rate 89 86 77 Respiratory Rate Blood Pressure 122/64 129/64 O2 Sat by Pulse 100 Oximetry O2 Sat by Pulse Oximetry [ Posterior Bilateral Throughout] 02/11/22 02/11/22 02/11/22 05:45 05:46 05:47 Temperature Pulse Rate 85 81 79 Respiratory Rate Blood Pressure 131/63 O2 Sat by Pulse 96 90 Oximetry O2 Sat by Pulse Oximetry [ Posterior Bilateral Throughout] 02/11/22 02/11/22 02/11/22 05:50 05:55 06:00 Temperature Pulse Rate 87 86 78 Respiratory Rate Blood Pressure O2 Sat by Pulse 100 95 99 Oximetry O2 Sat by Pulse Oximetry [ Posterior Bilateral Throughout] 02/11/22 02/11/22 02/11/22 06:05 06:10 06:15 Temperature Pulse Rate 79 88 92 H Respiratory Rate Blood Pressure O2 Sat by Pulse 98 98 99 Oximetry O2 Sat by Pulse Oximetry [ Posterior Bilateral Throughout] - Exam Narrative Exam: SROM at some unknown time. Small amount of clear fluid noted at perineum. No bag felt during cervical exam. Cardiovascular: Regular rate Lungs: Normal air movement Abdomen: Present: normal appearance Vulva: both: normal FHR: category 1 Uterine Contraction Monitor Mode: Internal Cervical Dilatation: 6.5 Cervical Effacement Percentage: 90 station: -2 Uterine Contraction Pattern: Regular Uterine Tone Measurement Phase: Resting Uterine Contraction Intensity: Moderate Extremities: edema - Labs Labs: Abnormal Labs 02/10/22 02/11/22 Unknown 01:27 Hgb 9.3 L MCV 72 L MCH 22 L RDW 16.1 H Lactate Dehydrogenase 300 H Laboratory Results - last 24 hr 02/10/22 02/10/22 02/10/22 21:35 Unknown Unknown WBC 8.5 RBC 4.22 Hgb 9.3 L Hct 30.5 MCV 72 L MCH 22 L MCHC 31 RDW 16.1 H Plt Count 247 Creatinine Estimated GFR Uric Acid AST ALT Lactate Dehydrogenase Syphilis IgG/IgM Ab Nonreactive Blood Type O NEGATIVE Antibody Screen Negative 02/11/22 01:27 WBC RBC Hgb Hct MCV MCH MCHC RDW Plt Count Creatinine 0.7 Estimated GFR > 60 Uric Acid 5.3 AST 21 ALT 13 Lactate Dehydrogenase 300 H Syphilis IgG/IgM Ab Blood Type Antibody Screen
--- NOTE | 2022-02-11 07:01 | Progress Note ---
Labor Epidural - Labor Epidural Start Time: 06:35 Stop Time: 06:45 Performed by:: GEM ARMANDO Procedure: Pt complaining that she is not getting relief with first epidural and has requested a second one. Time out performed and the procedure was explained, all questions answered. Patient was placed in a sitting position with monitors applied. The PTs back was prepped and draped in usual sterile fashion. The Skin was localized with 3 mL of 1% lidocaine at L3-L4. A 17-gauge Touhy epidural needle was advanced to GIANNA with saline at 8 cm and no blood/CSF was noted via epidural needle. Epidural catheter successfully placed on first attempt and was advanced to 12 cm. There was negative aspiration for blood and CSF in the catheter and negative response to a test dose of 3 ml 1.5% lidocaine w/ Epi and a sterile dressing was applied Patient tolerated the procedure well and there were no immediate complications noted.
[2022-02-11] MEDS ORDERED: miSOPROStol 100 MCG TAB ONE (08:46)
--- NOTE | 2022-02-11 09:07 | Procedure Note ---
OB Delivery Note - Delivery Date of Delivery: 02/11/22 Clinical Assistant Professor: SHALA EMERY Estimated blood loss: other (600) - Vaginal Delivery presentation: vertex Delivery position: OA Intrapartum events: none Delivery induction: cervidil Delivery monitor: internal FHT, internal uterine Route of delivery: Delivery placenta: spontaneous Delivery cord: 3 umbilical vessels Episiotomy: none Delivery laceration: 1st degree Anesthesia: epidural Delivery comments: baby girl birthed over intact perineum, placed skin to skin on mother's abdomen. 3 vessel cord clamped and cut, cord blood collected. Placenta delivered intact and complete, trailing membranes teased out with ring forceps. 1st degree perineal lac hemostatic - not repaired. Bleeding moderate, short delay in hanging pitocin. fundus massaged, cytotec placed NH. EBL approx 600. Mother and baby stable. All counts correct. Will watch b/p during period, consider mag sulfate x 24hrs for severe range b/ps. - Infant A at 1 minute: 8 at 5 minutes: 9 Gender: Female (7#10 "Liz")
[2022-02-11] MEDS ORDERED: MAGNESIUM SULFATE 40GM/1000ML 40 GM/1,000 ML BAG IV ONE (10:02)
[2022-02-11] MEDS ORDERED: MAGNESIUM SULFATE 40GM/1000ML 40 GM/1,000 ML BAG IV SCH (10:10)
[2022-02-11] MEDS ORDERED: BENZOCAINE/MENTHOL 20/0.5% TOP SPRAY 56 GM TP PRN (10:21)
--- NOTE | 2022-02-11 10:22 | Event Note ---
Date: 02/11/22 notified by RN of b/p's 140's-160's/70's-90's. Will start mag sulfate and Labetalol 200mg PO BID at this time. Close monitoring and strict I&Os.
[2022-02-11] MEDS ORDERED: BENZOCAINE/MENTHOL 20/0.5% TOP SPRAY 56 GM TP ONE (10:24)
[2022-02-11] MEDS ORDERED: ONDANSETRON 4 MG/2 ML INJ IV PRN (11:00)
[2022-02-11] MEDS ORDERED: MAGNESIUM HYDROXIDE (MOM) ORAL LIQD UDC PO PRN (11:00)
[2022-02-11] MEDS ORDERED: PROMETHAZINE 25 MG TAB PO PRN (11:00)
[2022-02-11] MEDS ORDERED: diphenhydrAMINE 25 MG CAP PO PRN (11:00)
[2022-02-11] MEDS ORDERED: WITCH HAZEL/ GLYCERIN PAD TP PRN (11:00)
[2022-02-11] MEDS ORDERED: LANOLIN/ZINC/DIMETHICONE (LANSINOH) 7 GM TP PRN (11:00)
[2022-02-11] MEDS: DOCUSATE SODIUM 100 MG CAP PO SCH (11:37)
[2022-02-11] MEDS: IBUPROFEN 800 MG TAB PO SCH ×2 (11:37→17:13)
[2022-02-11] MEDS: PRENATAL VIT27-FE FUMARATE-FOLIC ACID VIT TAB PO SCH (11:37)
[2022-02-11] MEDS: FERROUS SULFATE 325 MG TAB PO SCH (11:37)
[2022-02-11] MEDS: ACETAMINOPHEN 325 MG TAB PO PRN ×2 (14:45→22:14)
[2022-02-11] MEDS ORDERED: HYDROcodone/ACETAMINOPHEN 5-325 MG TAB PO ONE (18:00)
[2022-02-11 21:37] LABS: Hematocrit 28.9 % (30.3-42.9); Hemoglobin 8.7 gm/dl (10.1-14.3)
[2022-02-12] MEDS: IBUPROFEN 800 MG TAB PO SCH ×4 (00:22→18:16)
[2022-02-12] MEDS ORDERED: LACTATED RINGERS 1,000 ML ONE (01:28)
--- NOTE | 2022-02-12 07:42 | Progress Note ---
Assessment and Plan A: 36 y.o. s/p , cHTN. - Patient Problems (1) HTN (hypertension) Current Visit: Yes Status: Chronic Qualifiers: Hypertension type: primary hypertension Qualified Code(s): I10 - Essential (primary) hypertension Plan to address problem: Continue with magnesium infusion. - d/t be turned off around 1020 am. - Transfer to unit if blood pressures remain stable. Continue to monitor blood pressures. Continue to monitor for s/sx of Pre-eclampsia. Continue with Labetalol 200mg BID. (2) (normal spontaneous vaginal delivery) Current Visit: Yes Status: Acute Plan to address problem: Continue with care. Anticipate discharge home on 02/13. Subjective - Subjective Date of service: 02/12/22 Principal diagnosis: , cHTN, magnesium infusion Interval history: Pt denies ARAIZA, blurred vision, spots before her eyes, chest pain, shortness of breath, and upper abdominal pain. Patient reports: appetite normal, voiding normally, pain well controlled, flatus, ambulating normally : doing well Objective - Vital Signs Latest vital signs: Vital Signs Temp Pulse Resp BP BP Pulse Ox Pulse Ox 02/12/22 07:35 75 99 02/12/22 07:30 79 99 02/12/22 07:26 71 162/81 02/12/22 07:25 70 100 02/12/22 07:20 78 100 02/12/22 07:15 90 100 02/12/22 07:11 73 143/78 02/12/22 07:10 75 99 02/12/22 07:05 68 100 02/12/22 07:00 77 99 02/12/22 06:56 75 130/74 02/12/22 06:55 78 99 02/12/22 06:50 80 92 02/12/22 06:47 73 131/74 02/12/22 06:45 74 100 02/12/22 06:40 79 98 02/12/22 06:35 74 99 02/12/22 06:30 102 H 96 02/12/22 06:25 78 165/96 02/12/22 06:24 75 100 02/12/22 06:19 70 100 02/12/22 06:17 79 177/97 02/12/22 06:14 86 100 02/12/22 06:09 75 99 02/12/22 06:04 79 100 02/12/22 06:03 84 85 02/12/22 05:59 75 100 02/12/22 05:54 82 100 02/12/22 05:49 73 100 02/12/22 05:44 82 100 02/12/22 05:39 63 99 02/12/22 05:34 66 97 02/12/22 05:29 67 98 02/12/22 05:24 69 99 02/12/22 05:19 65 99 02/12/22 05:14 64 99 02/12/22 05:09 66 98 02/12/22 05:04 66 100 02/12/22 05:03 69 166/90 02/12/22 04:59 68 99 02/12/22 04:54 66 100 02/12/22 04:51 73 93 02/12/22 04:49 71 99 02/12/22 04:45 71 91 02/12/22 04:44 69 99 02/12/22 04:39 69 99 02/12/22 04:38 72 90 02/12/22 04:34 67 98 02/12/22 04:29 65 99 02/12/22 04:24 70 98 02/12/22 04:19 68 97 02/12/22 04:14 67 98 02/12/22 04:09 73 99 02/12/22 04:04 69 99 02/12/22 04:02 68 145/84 02/12/22 03:59 68 99 02/12/22 03:54 72 97 02/12/22 03:49 69 99 02/12/22 03:44 67 98 02/12/22 03:39 66 99 02/12/22 03:34 70 98 02/12/22 03:29 70 99 02/12/22 03:24 69 98 02/12/22 03:19 73 96 02/12/22 03:16 68 91 02/12/22 03:14 68 99 02/12/22 03:09 68 100 02/12/22 03:04 68 100 02/12/22 03:03 65 129/71 02/12/22 02:59 63 100 02/12/22 02:54 88 97 02/12/22 02:49 67 98 02/12/22 02:44 67 97 02/12/22 02:39 67 97 02/12/22 02:34 68 97 02/12/22 02:29 70 98 02/12/22 02:24 68 98 02/12/22 02:19 65 98 02/12/22 02:14 67 98 02/12/22 02:09 66 98 02/12/22 02:04 66 99 02/12/22 02:02 67 126/76 02/12/22 02:00 98.4 F 02/12/22 01:59 74 99 02/12/22 01:54 87 98 02/12/22 01:49 79 99 02/12/22 01:44 78 99 02/12/22 01:39 81 99 02/12/22 01:34 77 99 02/12/22 01:29 86 98 02/12/22 01:24 90 99 02/12/22 01:19 68 99 02/12/22 01:14 70 98 02/12/22 01:09 66 99 02/12/22 01:04 71 97 02/12/22 01:03 73 121/68 02/12/22 01:02 80 88 02/12/22 00:59 77 98 02/12/22 00:55 75 93 02/12/22 00:54 70 98 02/12/22 00:49 74 100 02/12/22 00:44 69 97 02/12/22 00:39 68 98 02/12/22 00:34 69 97 02/12/22 00:29 68 99 02/12/22 00:24 78 99 02/12/22 00:19 84 97 02/12/22 00:14 73 93 02/12/22 00:09 69 94 02/12/22 00:04 73 94 02/12/22 00:03 72 100/57 02/12/22 00:00 74 94 22 23:59 71 95 0722 23:55 76 94 22 23:54 75 95 22 23:49 71 96 22 23:44 85 99 02/11/22 23:39 91 H 99 07 23:34 81 99 0722 23:29 83 99 0722 23:24 85 98 02/11/22 23:19 75 100 02/11/22 23:16 80 140/81 02/11/22 23:14 84 98 02/11/22 23:13 98.5 F 80 16 99 02/11/22 23:10 78 138/79 02/11/22 23:09 98.1 F 84 16 138/79 100 02/11/22 23:04 80 100 02/11/22 23:03 73 154/93 02/11/22 22:59 82 99 02/11/22 22:54 89 99 02/11/22 22:52 82 91 02/11/22 22:49 68 97 02/11/22 22:44 69 99 02/11/22 22:39 72 100 02/11/22 22:34 67 99 02/11/22 22:29 78 98 02/11/22 22:24 74 99 02/11/22 22:19 87 140/91 99 02/11/22 22:14 92 H 100 02/11/22 22:09 79 96 02/11/22 22:04 90 98 02/11/22 21:59 69 97 02/11/22 21:54 69 98 02/11/22 21:49 78 99 02/11/22 21:44 70 98 02/11/22 21:39 74 98 02/11/22 21:34 68 100 02/11/22 21:29 82 99 02/11/22 21:24 90 100 02/11/22 21:19 78 99 02/11/22 21:14 77 98 02/11/22 21:09 70 98 02/11/22 21:04 73 99 02/11/22 21:03 72 123/65 02/11/22 20:59 79 99 02/11/22 20:54 88 99 02/11/22 20:49 80 99 02/11/22 20:44 82 98 02/11/22 20:39 75 98 02/11/22 20:34 81 99 02/11/22 20:29 82 99 02/11/22 20:24 75 98 02/11/22 20:19 78 98 02/11/22 20:14 88 98 02/11/22 20:09 83 99 02/11/22 20:04 91 H 99 02/11/22 20:02 74 113/57 02/11/22 19:59 85 99 02/11/22 19:56 98.4 F 16 02/11/22 19:54 83 98 02/11/22 19:52 100 02/11/22 18:49 85 99 02/11/22 18:44 79 99 02/11/22 18:39 99 H 98 02/11/22 18:34 85 98 02/11/22 18:29 83 98 02/11/22 18:24 81 99 02/11/22 18:19 80 99 02/11/22 18:17 82 130/81 02/11/22 18:14 84 99 02/11/22 18:09 82 99 02/11/22 18:07 54 L 92 02/11/22 18:05 18 98 02/11/22 18:04 81 100 02/11/22 17:59 104 H 83 L 02/11/22 17:56 81 86 02/11/22 17:54 98 H 87 02/11/22 17:51 87 02/11/22 17:49 51 L 84 02/11/22 17:47 82 132/68 02/11/22 17:46 88 02/11/22 17:41 76 L 02/11/22 17:38 79 L 02/11/22 17:36 84 02/11/22 17:32 66 77 L 02/11/22 17:31 80 L 02/11/22 17:26 80 L 02/11/22 17:19 73 L 02/11/22 17:17 86 140/70 80 L 02/11/22 17:14 80 L 02/11/22 17:10 98.9 F 18 98 02/11/22 17:08 81 L 02/11/22 17:03 67 80 L 02/11/22 16:58 74 0 L 02/11/22 16:57 82 86 02/11/22 16:53 94 H 97 02/11/22 16:52 85 90 02/11/22 16:48 70 98 02/11/22 16:47 65 119/65 91 02/11/22 16:43 69 96 02/11/22 16:38 71 96 02/11/22 16:37 91 H 83 L 02/11/22 16:33 69 98 02/11/22 16:28 82 97 02/11/22 16:23 76 99 02/11/22 16:18 74 97 02/11/22 16:16 81 116/73 02/11/22 16:13 83 98 02/11/22 16:08 83 99 02/11/22 16:03 84 97 02/11/22 16:00 80 18 115/59 100 02/11/22 15:58 80 98 02/11/22 15:53 82 97 02/11/22 15:52 88 02/11/22 15:48 80 97 02/11/22 15:43 82 96 02/11/22 15:38 78 98 02/11/22 15:33 84 98 02/11/22 15:28 92 H 99 02/11/22 15:23 80 98 02/11/22 15:18 95 H 98 02/11/22 15:15 18 98 02/11/22 15:13 89 99 02/11/22 15:08 89 100 02/11/22 15:03 86 100 02/11/22 14:58 83 100 02/11/22 14:53 85 100 02/11/22 14:48 83 100 02/11/22 14:46 77 139/66 02/11/22 14:43 86 100 02/11/22 14:38 90 100 02/11/22 14:33 83 99 02/11/22 14:28 81 100 02/11/22 14:23 92 H 100 02/11/22 14:18 83 99 02/11/22 14:16 84 145/64 02/11/22 14:13 81 99 02/11/22 14:08 85 99 02/11/22 14:03 92 H 98 02/11/22 14:00 18 97 02/11/22 13:58 72 97 02/11/22 13:54 80 94 02/11/22 13:53 79 97 02/11/22 13:48 83 97 02/11/22 13:46 89 105/73 02/11/22 13:43 72 97 02/11/22 13:38 78 96 02/11/22 13:33 73 97 02/11/22 13:28 80 96 02/11/22 13:23 82 97 02/11/22 13:18 78 97 02/11/22 13:16 79 125/70 02/11/22 13:13 90 98 02/11/22 13:08 87 99 02/11/22 13:05 86 113/68 02/11/22 13:03 81 99 02/11/22 13:00 99.0 F 18 97 02/11/22 12:58 87 99 02/11/22 12:53 92 H 98 02/11/22 12:48 75 98 02/11/22 12:43 88 99 02/11/22 12:38 80 99 02/11/22 12:33 89 100 02/11/22 12:30 85 145/70 02/11/22 12:28 91 H 98 02/11/22 12:25 92 H 91 02/11/22 12:23 88 100 02/11/22 12:18 92 H 97 02/11/22 12:13 96 H 99 02/11/22 12:08 80 96 02/11/22 12:03 77 98 02/11/22 11:59 18 99 02/11/22 11:58 88 99 02/11/22 11:53 90 99 02/11/22 11:48 86 99 02/11/22 11:47 86 133/61 02/11/22 11:43 86 99 02/11/22 11:38 96 H 99 02/11/22 11:33 83 99 02/11/22 11:28 92 H 100 02/11/22 11:23 91 H 131/58 99 02/11/22 11:18 97 H 99 02/11/22 11:17 96 H 93 02/11/22 11:16 86 166/87 02/11/22 11:13 78 98 02/11/22 11:08 100 H 97 02/11/22 11:03 94 H 100 02/11/22 11:00 94 H 18 100 02/11/22 10:58 88 100 02/11/22 10:53 95 H 99 02/11/22 10:48 89 100 02/11/22 10:46 88 146/90 02/11/22 10:43 100 H 99 02/11/22 10:38 96 H 100 02/11/22 10:33 94 H 99 02/11/22 10:28 89 100 02/11/22 10:23 94 H 98 02/11/22 10:18 94 H 99 02/11/22 10:15 93 H 147/82 02/11/22 10:13 87 97 02/11/22 10:08 87 99 02/11/22 10:03 94 H 99 02/11/22 10:00 93 H 149/78 02/11/22 09:58 88 98 02/11/22 09:53 91 H 99 02/11/22 09:48 86 99 02/11/22 09:46 85 167/93 02/11/22 09:43 92 H 100 02/11/22 09:38 97.9 F 84 97 02/11/22 09:33 76 100 02/11/22 09:31 86 163/65 02/11/22 09:28 96 H 100 02/11/22 09:23 95 H 96 02/11/22 09:18 104 H 97 02/11/22 09:17 100 H 94 02/11/22 09:16 86 155/98 02/11/22 09:13 91 H 100 02/11/22 09:08 94 H 100 02/11/22 09:03 93 H 100 02/11/22 09:00 93 H 125/78 02/11/22 08:58 85 100 02/11/22 08:56 63 85 02/11/22 08:53 100 02/11/22 08:47 94 H 100 02/11/22 08:45 94 H 140/69 02/11/22 08:33 81 92 02/11/22 08:30 120 H 100 02/11/22 08:26 103 H 82 L 02/11/22 08:25 103 H 100 02/11/22 08:20 120 H 100 02/11/22 08:15 69 161/86 100 02/11/22 08:10 76 100 02/11/22 08:05 74 100 02/11/22 08:00 89 151/94 100 02/11/22 07:55 71 100 02/11/22 07:50 80 100 02/11/22 07:46 71 136/90 02/11/22 07:45 92 H 100 Intake and Output 02/11/22 02/12/22 02/12/22 22:59 06:59 14:59 Output Total 850 1400 Balance -850 -1400 Output: Urine 850 1400 Indwelling Catheter 850 1400 Other: Total, Output Amount 200 400 - Exam Cardiovascular: Present: Regular rate Lungs: Present: Normal air movement Abdomen: Present: normal appearance, soft Uterus: Present: other (Unable to evaluate d/t body habitus. Minimal bleeding noted. ) Extremities: Present: edema (+ 2 noted to lower abdomen, and bilateral lower extremities. ) Deep Tendon Reflex Grade: Normal +2 - Labs Labs: Abnormal lab results 02/11/22 02/11/22 02/11/22 Range/Units 16:13 20:49 20:49 Hgb 8.7 L (10.1-14.3) gm/dl Hct 28.9 L (30.3-42.9) % Magnesium 2.80 H 3.20 H (1.7-2.3) mg/dL 02/12/22 Range/Units 05:44 Hgb (10.1-14.3) gm/dl Hct (30.3-42.9) % Magnesium 3.50 H (1.7-2.3) mg/dL
[2022-02-12] MEDS: FERROUS SULFATE 325 MG TAB PO SCH ×2 (09:54→22:29)
[2022-02-12] MEDS: PRENATAL VIT27-FE FUMARATE-FOLIC ACID VIT TAB PO SCH (09:54)
[2022-02-12] MEDS: DOCUSATE SODIUM 100 MG CAP PO SCH ×2 (09:55→22:30)
[2022-02-12] MEDS: ACETAMINOPHEN 325 MG TAB PO PRN (09:55)
--- NOTE | 2022-02-12 10:40 | Post Anesthesia Evaluation ---
- Post Anesthesia Evaluation Patient Participated: Yes Airway Patent: Yes Stable Respiratory Function: Yes Nausea/Vomiting: No Temp > 96.8F: Yes Pain Manageable: Yes Adequeate Hydration: Yes Anesthesia Complications: No Block Receding Appropriately: Yes Patient on Ventilator: No
[2022-02-13] MEDS: IBUPROFEN 800 MG TAB PO SCH ×3 (00:38→12:14)
--- NOTE | 2022-02-13 08:18 | Discharge Summary ---
Providers - Providers Date of Admission: 02/10/22 20:22 Date of discharge: 02/13/22 Attending physician: DESTINEE ALMANZA Primary care physician: DESTINEE ALMANZA Hospitalization Reason for admission: IOL htn Condition: Good Pertinent studies: post delivery H&H 8.7/28.9 - asymptomatic anemia d/t acute blood loss Procedures: Hospital course: uncomplicated and course Disposition: 01 HOME / SELF CARE / HOMELESS Final Discharge Diagnosis (Prints w/discharge instructions): vaginal Time spent for discharge: 20 - Discharge Diagnoses (1) (normal spontaneous vaginal delivery) Status: Acute (2) HTN (hypertension) Status: Chronic Qualifiers: Hypertension type: primary hypertension Qualified Code(s): I10 - Essential (primary) hypertension Core Measure Documentation - Palliative Care Palliative Care/ Comfort Measures: Not Applicable - Core Measures Any of the following diagnoses?: none Exam - Constitutional Vitals: Temp Pulse Resp BP Pulse Ox 98.2 F 71 18 149/73 98 02/13/22 06:07 02/13/22 06:07 02/13/22 07:37 02/13/22 06:07 02/13/22 06:07 General appearance: Present: no acute distress, well-nourished - EENT Eyes: Present: PERRL ENT: hearing intact - Neck Neck: Present: supple, normal ROM - Respiratory Respiratory effort: normal Respiratory: bilateral: CTA - Cardiovascular Rhythm: regular Heart Sounds: Absent: rub, click - Extremities Extremity abnormal: edema (BLE, panis) Peripheral Pulses: within normal limits - Abdominal General gastrointestinal: Present: soft, non-tender, non-distended, normal bowel sounds Female genitourinary: Present: normal - Integumentary Integumentary: Present: clear, warm, dry - Musculoskeletal Musculoskeletal: gait normal, strength equal bilaterally - Psychiatric Psychiatric: appropriate mood/affect, intact judgment & insight - Neurologic Neurologic: CNII-XII intact, moves all extremities - Additional findings Additional findings: lochia scant, fundus firm, Plan Activity: no restrictions Diet: regular Follow up with: DESTINEE ALMANZA MD [Primary Care Provider] - 7 Days (Congratulations! Please call [phone] to schedule an appointment for a blood pressure check in 1 week. Call for any questions or concerns.) Prescriptions: Ferrous Sulfate [Feosol 325 MG tab] 325 mg PO BID #60 tablet labetaloL [Labetalol 200mg TAB] 200 mg PO BID #60 tab Ibuprofen [Motrin 800 MG tab] 800 mg PO Q8HR PRN #30 tablet PRN Reason: Pain
[2022-02-13 08:38] VITALS: BP 133/73
[2022-02-13] MEDS: DOCUSATE SODIUM 100 MG CAP PO SCH ×2 (10:09→10:13)
[2022-02-13] MEDS: PRENATAL VIT27-FE FUMARATE-FOLIC ACID VIT TAB PO SCH (10:09)
[2022-02-13] MEDS: FERROUS SULFATE 325 MG TAB PO SCH ×2 (10:10→10:13)
[2022-02-13] MEDS: ACETAMINOPHEN 325 MG TAB PO PRN (10:14)
== END 2022-02-13 12:40 | disposition home or self-care (01) | DRG 806 ==
LOC: LD 20:22 → OB 02-12 12:47
PROVIDERS: ADMIT Obstetrics & Gynecology; ATTEND Obstetrics & Gynecology
PROC: 10E0XZZ Delivery of Products of Conception, External Approach (ICD-10-PCS; principal; 2022-02-11)
PROC: 0HQ9XZZ Repair Perineum Skin, External Approach (ICD-10-PCS; 2022-02-11)
PROC: 3E0P7VZ Introduction of Hormone into Female Reproductive, Via Natural or Artificial Opening (ICD-10-PCS; 2022-02-11)
PROC: 3E0R3BZ Introduction of Anesthetic Agent into Spinal Canal, Percutaneous Approach (ICD-10-PCS; 2022-02-11)
PROC: 00HU33Z Insertion of Infusion Device into Spinal Canal, Percutaneous Approach (ICD-10-PCS; 2022-02-11)
PROC: 3E0234Z Introduction of Serum, Toxoid and Vaccine into Muscle, Percutaneous Approach (ICD-10-PCS; 2022-02-11)
DX: O16.4 Unspecified maternal hypertension, complicating childbirth (principal); O98.32 Other infections with a predominantly sexual mode of transmission complicating childbirth; Z37.0 Single live birth; D62 Acute posthemorrhagic anemia; Z3A.38 38 weeks gestation of pregnancy; Z20.822 Contact with and (suspected) exposure to COVID-19; A60.00 Herpesviral infection of urogenital system, unspecified; O99.52 Diseases of the respiratory system complicating childbirth; O99.214 Obesity complicating childbirth; E66.01 Morbid (severe) obesity due to excess calories; O70.0 First degree perineal laceration during delivery; Z3A.37 37 weeks gestation of pregnancy; O90.81 Anemia of the puerperium
CPT/HCPCS: 36415; 59200; 76815; 82565; 83615; 83735; 84450; 84460; 84550; 85014; 85018; 85027; 85461; 86592; 86850; 86900; 86901; 88307; G0378; J3490; J0595; J2590; J2790; J3010; J3475; J7120; U0003

== ENCOUNTER 2022-02-25 13:31 | Inpatient (IN) | payer BC, OTHER ==
--- NOTE | 2022-02-25 13:44 | Emergency Department Report ---
ED General Adult HPI - General Stated complaint: 2WKS /HIGH BLOOD PRESSURE/HEADACHE PUI?: No Time Seen by Provider: 02/25/22 13:39 Source: patient Mode of arrival: Ambulatory Limitations: No Limitations - History of Present Illness Initial comments: 02/11 DELIVERY NO HTN DURING PREG WAS ON HCTZ PRIOR TO PREG DOES HAVE HX PRE-ECLAMPSIA WITH FIRST PREG SEES MY OB SAW OB YESTERDAY-- CHANGED FROM LABETOLOL BID TO PROCARDIA DAILY GOES BACK THURSDAY SHE STARTED TO FEEL BAD LAST NIGHT NOW WITH HEADACHE TOOK MOTRIN AND TYLENOL [employer] IN TRIAGE -: Gradual Location: head Associated Symptoms: denies other symptoms, headaches. denies: confusion, chest pain, cough, diaphoresis, fever/chills, loss of appetite, malaise, nausea/vomiting, rash, seizure, shortness of breath, syncope, weakness - Related Data Home Medications Medication Instructions Recorded Confirmed Last Taken Aspirin 81 mg PO QDAY 02/11/22 02/11/22 Unknown Omeprazole 40 mg PO QDAY 02/11/22 02/11/22 Unknown Vitamin 1 tab PO QDAY 02/11/22 02/11/22 Unknown Valacyclovir 1 gram PO QDAY 02/11/22 02/11/22 Unknown Previous Rx's Medication Instructions Recorded Last Taken Type Ferrous Sulfate [Feosol 325 MG tab] 325 mg PO BID #60 tablet 02/13/22 Unknown Rx Ibuprofen [Motrin 800 MG tab] 800 mg PO Q8HR PRN #30 tablet 02/13/22 Unknown Rx labetaloL [Labetalol 200mg TAB] 200 mg PO BID #60 tab 02/13/22 Unknown Rx Allergies Allergy/AdvReac Type Severity Reaction Status Date / Time codeine Allergy Hives Verified 12/11/21 22:04 ED Review of Systems ROS: Stated complaint: 2WKS /HIGH BLOOD PRESSURE/HEADACHE Other details as noted in HPI Comment: All other systems reviewed and negative ED Past Medical Hx - Past Medical History Previous Medical History?: Yes Hx Hypertension: Yes Hx Heart Attack/AMI: No Hx Diabetes: No Hx Deep Vein Thrombosis: No Hx Liver Disease: No Hx Renal Disease: No Hx Sickle Cell Disease: No Hx Seizures: No Hx Psychiatric Treatment: Yes (anxiety) Hx Asthma: Yes Hx COPD: No Hx HIV: No - Surgical History Past Surgical History?: Yes Hx Pacemaker: No Hx Internal Defibrillator: No Additional Surgical History: breast reduction-2003,D&C-2018 r/t heavy bleeding - Family History Family history: no significant - Social History Smoking Status: Never Smoker Substance Use Type: None - Medications Home Medications: Home Medications Medication Instructions Recorded Confirmed Last Taken Type Aspirin 81 mg PO QDAY 02/11/22 02/11/22 Unknown History Omeprazole 40 mg PO QDAY 02/11/22 02/11/22 Unknown History Vitamin 1 tab PO QDAY 02/11/22 02/11/22 Unknown History Valacyclovir 1 gram PO QDAY 02/11/22 02/11/22 Unknown History Ferrous Sulfate [Feosol 325 MG tab] 325 mg PO BID #60 tablet 02/13/22 Unknown Rx Ibuprofen [Motrin 800 MG tab] 800 mg PO Q8HR PRN #30 tablet 02/13/22 Unknown Rx labetaloL [Labetalol 200mg TAB] 200 mg PO BID #60 tab 02/13/22 Unknown Rx ED Physical Exam - General General appearance: alert, in no apparent distress - Head Head exam: Present: atraumatic, normocephalic - Eye Eye exam: Present: normal appearance - ENT ENT exam: Present: mucous membranes moist - Neck Neck exam: Present: normal inspection - Respiratory Respiratory exam: Present: normal lung sounds bilaterally. Absent: respiratory distress - Cardiovascular Cardiovascular Exam: Present: regular rate, normal rhythm. Absent: systolic murmur, diastolic murmur, rubs, gallop - GI/Abdominal GI/Abdominal exam: Present: soft, normal bowel sounds - Extremities Exam Extremities exam: Present: normal inspection - Back Exam Back exam: Present: normal inspection - Neurological Exam Neurological exam: Present: alert, oriented X3 - Psychiatric Psychiatric exam: Present: normal affect, normal mood - Skin Skin exam: Present: warm, dry, intact, normal color. Absent: rash ED Medical Decision Making - Medical Decision Making MSE TO MAIN FOR EVAL Critical care attestation.: If time is entered above; I have spent that time in minutes in the direct care of this critically ill patient, excluding procedure time. ED Disposition Clinical Impression: Pre-eclampsia in puerperium Disposition: 30 STILL A PATIENT Is pt being admited?: No Does the pt Need Aspirin: No Condition: Stable Instructions: Hypertension (ED)
[2022-02-25] MEDS ORDERED: LACTATED RINGERS 1,000 ML IV SCH (15:15)
--- NOTE | 2022-02-25 15:21 | Emergency Department Report ---
HPI - General Chief Complaint: High BP PUI?: No Time Seen by Provider: 02/25/22 13:39 - HPI HPI: 36-year-old morbidly obese female with a history of hypertension, status post via spontaneous vaginal delivery approximately 2 weeks ago, sent in for admission secondary to high blood pressure and headache. Patient reports she is compliant with her blood pressure medications. While undergoing a visit with Kaylen Weems, she states that her blood pressure was elevated and the provider discontinued labetalol and started the patient on Procardia. Patient states she took Procardia last night as well as this morning but her blood pressure continues to remain persistent. She also reports a gradual onset of a frontal throbbing headache which is constant and nonradiating. She states it is not improved with [id number] meds. She states she has had no vision loss, no difficulty talking walking or word finding. She denies any chest pain shortness of breath or difficulty breathing. She complains of 2 weeks of persistent edema to bilateral lower extremities. Pain currently 6 out of 10. ED Past Medical Hx - Past Medical History Previous Medical History?: Yes Hx Hypertension: Yes Hx Heart Attack/AMI: No Hx Diabetes: No Hx Deep Vein Thrombosis: No Hx Liver Disease: No Hx Renal Disease: No Hx Sickle Cell Disease: No Hx Seizures: No Hx Psychiatric Treatment: Yes (anxiety) Hx Asthma: Yes Hx COPD: No Hx HIV: No - Surgical History Past Surgical History?: Yes Hx Pacemaker: No Hx Internal Defibrillator: No Additional Surgical History: breast reduction-2002,D&C-2018 r/t heavy bleeding - Social History Smoking Status: Never Smoker Substance Use Type: None - Medications Home Medications: Home Medications Medication Instructions Recorded Confirmed Last Taken Type Aspirin 81 mg PO QDAY 02/11/22 02/11/22 Unknown History Omeprazole 40 mg PO QDAY 02/11/22 02/11/22 Unknown History Vitamin 1 tab PO QDAY 02/11/22 02/11/22 Unknown History Valacyclovir 1 gram PO QDAY 02/11/22 02/11/22 Unknown History Ferrous Sulfate [Feosol 325 MG tab] 325 mg PO BID #60 tablet 02/13/22 Unknown Rx Ibuprofen [Motrin 800 MG tab] 800 mg PO Q8HR PRN #30 tablet 02/13/22 Unknown Rx labetaloL [Labetalol 200mg TAB] 200 mg PO BID #60 tab 02/13/22 Unknown Rx ED Review of Systems ROS: Stated complaint: 2WKS /HIGH BLOOD PRESSURE/HEADACHE Other details as noted in HPI Constitutional: no symptoms reported Eyes: denies: eye pain ENT: denies: ear pain, throat pain, dental pain Respiratory: no symptoms reported, see HPI Cardiovascular: denies: palpitations, dyspnea on exertion, orthopnea, edema, syncope, paroxysmal nocturnal dyspnea Endocrine: see HPI Gastrointestinal: denies: as per HPI, abdominal pain, nausea, vomiting, diarrhea, constipation, hematemesis, melena, hematochezia Skin: denies: rash, lesions, change in color, change in hair/nails Neurological: headache. denies: weakness, numbness, paresthesias, confusion, abnormal gait, vertigo, other Psychiatric: denies: anxiety, depression, auditory hallucinations, visual hallucinations, homicidal thoughts Hematological/Lymphatic: denies: easy bleeding, easy bruising, swollen glands Physical Exam - Physical Exam Vital Signs: Vital Signs 02/25/22 13:40 Temperature 98.9 F Pulse Rate 84 Respiratory 18 Rate Blood Pressure 184/109 O2 Sat by Pulse 98 Oximetry General: Gen: Morbidly obese female, lying on stretcher, comfortable appearing, speaking in full sentences, no drooling no stridor no respiratory distress HEENT: Normocephalic atraumatic pupils equally round and reactive to light extraocular muscles intact sclera anicteric Neck: Full range of motion, no midline spinal tenderness palpation, no JVD, no carotid bruits, no nuchal rigidity CVS: S1-S2 regular rate and rhythm with no gallops rubs or murmurs, chest wall nontender Pulmonary: Clear to auscultation bilaterally, no wheezes rales or rhonchi Abdomen: Soft nondistended nontender no guarding or rebound tenderness, no palpable deformities or step-offs, normal active bowel sounds, no hepatosplenomegaly, no pulsatile masses : Deferred Extremities: No cyanosis no clubbing S2 pitting edema extending from patient's feet to her distal tib-fib's bilaterally,, intact distal peripheral pulses, Integumentary: Skin normal, no petechia no purpura no abscess no lacerations no evidence of trauma no evidence of infection Neuro: Patient is awake alert and oriented to person place time situation, mentating well, cranial nerves II through XII intact, no focal neurodeficits, sensation grossly tact Psych: Calm cooperative, mood affect normal ED Course Vital Signs 02/25/22 13:40 Temperature 98.9 F Pulse Rate 84 Respiratory 18 Rate Blood Pressure 184/109 O2 Sat by Pulse 98 Oximetry - Reevaluation(s) Reevaluation #1: 02/25/22 15:35 Patient reassessed. She is comfortable and well-appearing. Patient informed that she will be admitted by Dr. Joshi to the obstetric service for further management. She will be ordered here for analgesics for headache as well as CT head to rule out acute intracranial pathology, respectively. ED Medical Decision Making - Lab Data Result diagrams: 02/25/22 14:35 02/25/22 14:35 - EKG Data -: EKG Interpreted by Me EKG shows normal: sinus rhythm Rate: normal - EKG Data When compared to previous EKG there are: no significant change, previous EKG unavailable Interpretation: no acute changes - Radiology Data Radiology results: report reviewed - Medical Decision Making 36yo morbidly obese F ,sent for evaluation of post uncontrolled hypertension and bilateral lower extremity edema as well as headaches. Patient given labetalol here for blood pressure management. Labs and diagnostic imaging reviewed. Patient has been accepted for admission to the obstructive service by for definitive management. Critical Care Time: No Critical care attestation.: If time is entered above; I have spent that time in minutes in the direct care of this critically ill patient, excluding procedure time. ED Disposition Clinical Impression: Pre-eclampsia in puerperium, Preeclampsia Disposition: ADMITTED INPATIENT Is pt being admited?: Yes Does the pt Need Aspirin: No Condition: Stable Instructions: Hypertension (ED)
[2022-02-25 15:23] LABS: Hemoglobin 10.4 gm/dl (10.1-14.3); Mean Corpuscular HGB Conc 29 % (30-34); Mean Corpuscular Volume 76 fl (79-97); Platelet Count 283 K/mm3 (140-440); Red Blood Count 4.71 M/mm3 (3.65-5.03); Red Cell Distribution Width 19.7 % (13.2-15.2)
[2022-02-25 15:24] LABS: Hematocrit 35.7 % (30.3-42.9)
[2022-02-25 15:28] LABS: Alanine Aminotransferase 23 units/L (7-56); Calcium 9.4 mg/dL (8.4-10.2); Hemolysis Index 0
[2022-02-25] MEDS ORDERED: METOCLOPRAMIDE 10 MG/2 ML INJ IV ONE (15:31)
[2022-02-25] MEDS ORDERED: SODIUM CHLORIDE 0.9% 500 ML 500 ML IV ONE (15:32)
[2022-02-25] MEDS ORDERED: hydrALAZINE 20 MG/1 ML INJ IV SCH (16:00)
[2022-02-25 16:36] LABS: BUN/Creatinine Ratio 9; Blood Urea Nitrogen 7 mg/dL (7-17)
--- NOTE | 2022-02-25 16:45 | Cat Scan Report ---
CT head/brain wo con INDICATION / CLINICAL INFORMATION: 36 years Female; preeclampsia, p/w headache, bp 201/110; r/o ICH. TECHNIQUE: Routine CT head without contrast. All CT scans at this location are performed using CT dos e reduction for ALARA by means of automated exposure control. COMPARISON: None available. FINDINGS: BRAIN / INTRACRANIAL CONTENTS: The brain parenchyma appears to demonstrate appropriate attenuation. T he ventricular system is within normal limits in size and configuration. There is no clear CT evidenc e of acute intracranial hemorrhage or significant mass effect. ORBITS: No significant abnormality of visualized orbits. SINUSES / MASTOIDS: No significant abnormality in the visualized paranasal sinuses or mastoid air vaughn ls. CRANIOCERVICAL JUNCTION: No significant abnormality. ADDITIONAL FINDINGS: None. IMPRESSION: 1. There is no clear CT evidence of acute intracranial process. Signer Name: Jimi Larios MD Signed: 02/25/2022 4:41 PM Workstation Name: [id number]
[2022-02-25 19:38] LABS: Bilirubin,Urine Negative (Negative); Color,Urine Straw (Yellow)
[2022-02-25 19:39] LABS: Blood,Urine 3+ (Negative); Protein,Urine <15 mg/dL mg/dL (Negative)
[2022-02-25 20:04] LABS: Bacteria,Urine 1+ /HPF (Negative); Mucus,Urine 1+ /HPF
--- NOTE | 2022-02-25 20:36 | History and Physical Report ---
History of Present Illness Date of examination: 02/25/22 Date of admission: 02/25/22 15:02 Chief complaint: elevated blood pressure, . History of present illness: Past History : 2 Term Births: 1 Premature Births: 1 Living Children: 1 Para: 1 Mult. Births: 0 Prev : 0 Aborta: 0 Elect. Ab: 0 Spont. Ab: 0 Ectopics: 0 # 1 Delivery date: 11/2020 Weeks Gestation: 29 labor: yes Delivery type: Delivery location: [facility] Infant Sex: Female Comments: Came in in labor. Went to hospital for contractions and bleeding. Had mag for labor. Possible elevated blood pressures. Pre eclampsia?. # 1 Delivery date: 01/2022 Weeks Gestation: 39+0 labor: no Delivery type: Delivery location: [facility] Sex: Female Comments: IOL for HTN - received mag x 24hrs post delivery Past Medical History: Reviewed and updated today: Anxiety Asthma Hypertension Herpes Past Surgical History: Reviewed and updated today: negative Risk Factors: Smoked Tobacco Use: Never smoker Smokeless Tobacco Use: Never Passive Smoke Exposure: no HIV High Risk Behavior: no Caffeine Use: <1 drinks per day Exercise: no Exercise Counseling: yes Seatbelt Use: preg-alcoholic counselor % Sun Exposure: frequently Family History Risk Factors: Family History of [place] in 1 Female Relative Age < 65: yes Family History of [place] in 1 Male Relative Age < 55: yes No Dietary Counseling Reason: pn yes PAP Smear History: Date of Last PAP Smear: 07/12/2021 Results: Normal PAP Smear History: Date of Last PAP Smear: 07/04/2021 Results: normal PAP Smear History: Date of Last PAP Smear: 07/04/2021 Results: normal Alcohol Use: no Drug Use: no Past Medical History Anesthesia Complications: negative Anemia: positive Autoimmune Disorder: negative Bleeding Disorder: negative Blood Transfusions: negative Breast Disease: negative Diabetes: negative Heart Disease: negative Hypertension: positive Hepatitis/Liver Disease: negative Kidney Disease/UTI: negative Neurologic/Epilepsy/Migraines: negative Phlebitis/Varicosities: negative Psychiatric: negative Pulmonary Disease/Asthma: negative Thyroid Disease: negative Hospitalizations: negative Surgery (Non-natural gas engineer): negative Abnormal PAP: negative SAVANNAH Exposure: negative Infertility: negative Uterine Anomaly: negative Uterine Surgery (not C/S): negative Other Gynecologic Problems: negative Social Hx: Patient is single Smoking History: Patient has never smoked. Infection History Hx of STD: none HIV Risk Eval: no Hepatitis B Risk Eval: low risk Personal hx. of genital herpes: yes Partner hx. of genital herpes: yes Rash, Viral, or Febrile illness since last LMP? no Varicella/Chicken Pox Status: Previous Disease TB Risk: no Genetic History ADVANCED MATERNAL AGE Congenital Heart Defect: Mom: no Dad: no Db Disease: Mom: no Dad: no Thalassemia Mom: no Dad: no Neural Tube Defect Mom: no Dad: no Down's Syndrome Mom: no Dad: no Jamie-Sachs Mom: no Dad: no Sickle Cell Disease/Trait Mom: no Dad: no Hemophilia Mom: no Dad: no Muscular Dystrophy Mom: no Dad: no Cystic Fibrosis Mom: no Dad: no [place] Chorea Mom: no Dad: no Mental Retardation Mom: no Dad: no Fragile X Mom: no Dad: no Other Genetic/Chromosomal Disorder Mom: no Dad: no Child w/other defect Mom: no Dad: no Past History Past Medical History: other (see HPI) Past Surgical History: other (see HPI) 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: other (see HPI) Family/Genetic History: other (see HPI) - Obstetrical History : 2 Para: 2 Hx # Term Pregnancies: 1 Number of Pregnancies: 1 Medications and Allergies Allergies Allergy/AdvReac Type Severity Reaction Status Date / Time codeine Allergy Hives Verified 12/11/21 22:04 Home Medications Medication Instructions Recorded Confirmed Last Taken Type Aspirin 81 mg PO QDAY 02/11/22 02/11/22 Unknown History Omeprazole 40 mg PO QDAY 02/11/22 02/11/22 Unknown History Vitamin 1 tab PO QDAY 02/11/22 02/11/22 Unknown History Valacyclovir 1 gram PO QDAY 02/11/22 02/11/22 Unknown History Ferrous Sulfate [Feosol 325 MG tab] 325 mg PO BID #60 tablet 02/13/22 Unknown Rx Ibuprofen [Motrin 800 MG tab] 800 mg PO Q8HR PRN #30 tablet 02/13/22 Unknown Rx labetaloL [Labetalol 200mg TAB] 200 mg PO BID #60 tab 02/13/22 Unknown Rx Active Meds: Active Medications Hydralazine HCl (Hydralazine 20 Mg/1 Ml Inj) 10 mg IV ONCE KITTY Stop: 02/25/22 23:00 Last Admin: 02/25/22 16:42 Dose: 10 mg Lactated Ringer's (Lactated Ringers) 1,000 mls @ 125 mls/hr IV DIRECT KITTY Labetalol HCl (Labetalol 20 Mg/4 Ml Inj) 20 mg IV ONCE KITTY Stop: 02/25/22 23:00 Labetalol HCl (Labetalol 100 Mg Tab) 200 mg PO BID [facility] Review of Systems All systems: negative - Vital Signs Vital signs: Vital Signs Temp Pulse Resp BP Pulse Ox 98.9 F 84 18 184/109 98 02/25/22 13:40 02/25/22 13:40 02/25/22 13:40 02/25/22 13:40 02/25/22 13:40 Temp Pulse Resp BP Pulse Ox 98.9 F 80 18 135/87 99 02/25/22 13:40 02/25/22 18:57 02/25/22 18:57 02/25/22 18:57 02/25/22 18:57 - Physical Exam Breasts: Positive: normal Cardiovascular: Regular rate Lungs: Positive: Normal air movement Abdomen: Positive: normal appearance, soft Genitourinary (Female): Positive: normal external genitalia Uterus: Positive: normal size Extremities: Positive: edema Deep Tendon Reflex Grade: Normal +2 Results Result Diagrams: 02/25/22 14:35 02/25/22 14:35 Abnormal lab results 02/25/22 02/25/22 02/25/22 Range/Units 14:35 14:35 Unknown MCV 76 L (79-97) fl MCH 22 L (28-32) pg MCHC 29 L (30-34) % RDW 19.7 H (13.2-15.2) % Alkaline Phosphatase 140 H (35-129) units/L NT-Pro-B Natriuret Pep 634.1 H (0-450) pg/mL Urine WBC (Auto) 25.0 H (0.0-6.0) /HPF All other labs normal. Assessment and Plan 36y/o day #14, pt admitted from ED after evaluation found b/p elevated in severe range. Pt previously treated with mag sulfate and d/c'd home on procardia PO. B/P 135/87 after PO labetalol and 1 dose of IV hydralizine. Plan to continue PO labetalol and consult hospitalist for recommendations on blood pressure control. - Patient Problems (1) Pre-eclampsia in puerperium Current Visit: Yes Status: Acute (2) BMI 50.0-59.9, adult Current Visit: No Status: Acute (3) Asthma Current Visit: No Status: Chronic Qualifiers: Asthma severity: mild (4) HTN (hypertension) Current Visit: No Status: Chronic Qualifiers:
[2022-02-25] MEDS ORDERED: ACETAMINOPHEN 500 MG TAB PO ONE (22:00)
[2022-02-26] MEDS: IBUPROFEN 800 MG TAB PO PRN ×2 (07:24→21:48)
--- NOTE | 2022-02-26 08:24 | Progress Note ---
Assessment and Plan A: Approx. 2 weeks . Preeclampsia with chronic HTN. Depression - Patient Problems (1) Pre-eclampsia in puerperium Current Visit: Yes Status: Acute Plan to address problem: Consult internal medicine/ Dr Sanches will come to evaluate Will continue to monitor for worsening signs of PreEclampsia Subjective - Subjective Date of service: 02/26/22 Interval history: Pt in bed, states not feeling well and has a H/A. Denies difficulty breathing and chest pain, denies ABD pain or visual changes. Also states feeling sad, has been sad since delivery and not knowing how to care for her kids. BPs are uncontrolled, Internal medicine Dr Farrell called, will come asses today. Mental health consult for depression. Patient reports: appetite normal, voiding normally, ambulating normally [place]: other Objective - Vital Signs Latest vital signs: Vital Signs Temp Pulse Resp BP BP Pulse Ox Pulse Ox 02/26/22 08:15 93 H 97 02/26/22 07:48 83 96 02/26/22 07:43 76 97 02/26/22 07:38 75 98 02/26/22 07:33 74 98 02/26/22 07:31 98.4 F 02/26/22 07:28 80 97 02/26/22 07:23 78 145/100 96 02/26/22 07:18 77 97 02/26/22 07:13 86 95 02/26/22 07:12 77 154/92 02/26/22 07:08 78 97 02/26/22 07:03 79 96 02/26/22 06:58 76 97 02/26/22 06:53 74 97 02/26/22 06:52 78 126/91 02/26/22 06:48 76 96 02/26/22 06:43 80 96 02/26/22 06:41 77 94 02/26/22 06:38 75 96 02/26/22 06:35 78 93 02/26/22 06:33 79 97 02/26/22 06:28 77 94 02/26/22 06:23 78 98 02/26/22 06:22 76 139/91 02/26/22 06:18 75 97 02/26/22 06:13 73 97 02/26/22 06:08 75 97 02/26/22 06:03 74 97 02/26/22 05:58 75 97 02/26/22 05:53 74 97 02/26/22 05:52 77 135/93 02/26/22 05:48 80 97 02/26/22 05:43 79 97 02/26/22 05:38 79 98 02/26/22 05:33 79 98 02/26/22 05:28 78 98 02/26/22 05:23 79 99 08 05:22 77 94 02/26/22 05:18 86 96 02/26/22 05:13 76 96 02/26/22 05:08 78 97 02/26/22 05:03 80 97 02/26/22 05:02 98.3 F 02/26/22 04:58 78 97 02/26/22 04:53 82 97 02/26/22 04:52 75 139/79 02/26/22 04:48 79 97 02/26/22 04:43 91 H 96 02/26/22 04:38 76 97 02/26/22 04:33 78 96 02/26/22 04:28 75 97 02/26/22 04:23 78 96 02/26/22 04:22 72 137/84 02/26/22 04:18 74 97 02/26/22 04:13 78 97 02/26/22 04:08 77 96 02/26/22 04:03 83 95 02/26/22 03:58 80 95 02/26/22 03:53 75 96 02/26/22 03:52 72 134/76 02/26/22 03:48 77 96 02/26/22 03:43 77 96 02/26/22 03:38 78 95 02/26/22 03:33 77 95 02/26/22 03:28 73 95 02/26/22 03:23 74 96 02/26/22 03:22 74 130/79 02/26/22 03:18 77 95 02/26/22 03:13 78 96 02/26/22 03:08 76 96 02/26/22 03:03 80 96 02/26/22 02:58 77 94 02/26/22 02:55 80 91 02/26/22 02:53 86 90 02/26/22 02:52 73 152/87 02/26/22 02:49 75 92 02/26/22 02:48 75 97 02/26/22 02:43 75 99 0822 02:38 75 97 02/26/22 02:33 73 96 02/26/22 02:28 73 97 02/26/22 02:23 77 97 02/26/22 02:22 75 140/79 02/26/22 02:18 75 95 02/26/22 02:13 76 96 02/26/22 02:08 76 95 02/26/22 02:03 77 95 02/26/22 01:58 97 H 98 02/26/22 01:55 98.1 F 02/26/22 01:53 87 98 02/26/22 01:52 78 133/75 02/26/22 01:48 79 97 02/26/22 01:43 78 96 02/26/22 01:38 78 96 02/26/22 01:33 79 99 02/26/22 01:28 72 100 02/26/22 01:23 78 100 02/26/22 01:22 76 128/81 02/26/22 01:18 82 98 02/26/22 01:13 76 96 02/26/22 01:08 78 96 02/26/22 01:03 78 100 02/26/22 00:58 79 98 02/26/22 00:53 79 98 02/26/22 00:52 76 121/69 02/26/22 00:48 77 98 02/26/22 00:43 79 98 02/26/22 00:38 78 98 02/26/22 00:33 79 98 02/26/22 00:28 79 97 02/26/22 00:24 78 94 02/26/22 00:23 78 96 02/26/22 00:22 79 128/78 02/26/22 00:18 78 96 02/26/22 00:13 78 96 02/26/22 00:08 78 95 02/26/22 00:03 79 95 02/26/22 00:00 75 94 02/25/22 23:58 80 95 02/25/22 23:53 78 95 02/25/22 23:52 77 128/68 02/25/22 23:48 78 95 02/25/22 23:43 75 95 02/25/22 23:38 75 95 02/25/22 23:33 74 95 02/25/22 23:28 72 96 02/25/22 23:23 73 124/78 96 02/25/22 23:18 70 96 02/25/22 23:14 84 91 02/25/22 23:13 70 98 02/25/22 23:11 73 157/103 02/25/22 23:08 71 99 02/25/22 23:03 78 98 02/25/22 22:58 90 98 02/25/22 22:42 81 97 02/25/22 22:37 87 97 02/25/22 22:32 80 97 02/25/22 22:27 79 98 02/25/22 22:22 76 170/114 98 02/25/22 22:17 80 99 02/25/22 22:12 79 97 02/25/22 22:07 82 98 02/25/22 22:02 72 100 02/25/22 21:57 77 99 02/25/22 21:52 75 96 02/25/22 21:49 76 159/97 02/25/22 21:48 75 193/93 02/25/22 21:47 73 98 02/25/22 21:46 180/104 02/25/22 21:42 76 98 02/25/22 21:37 75 98 02/25/22 21:33 76 180/104 02/25/22 21:32 79 180/104 99 02/25/22 21:27 88 100 02/25/22 21:23 75 182/97 02/25/22 21:22 77 99 02/25/22 21:18 98.7 F 97 02/25/22 21:17 76 99 02/25/22 21:12 81 99 02/25/22 21:10 168/93 02/25/22 21:07 83 98 02/25/22 21:05 75 168/93 02/25/22 21:02 79 98 02/25/22 20:57 83 99 02/25/22 20:53 83 167/96 02/25/22 20:52 83 99 02/25/22 18:57 80 18 135/87 99 02/25/22 17:13 77 18 163/88 100 02/25/22 15:34 18 100 02/25/22 13:40 98.9 F 84 18 184/109 98 - Exam Breasts: Present: normal Lungs: Present: Clear to auscultation, Normal air movement Abdomen: Present: normal appearance, soft Uterus: Present: normal, bogginess Deep Tendon Reflex Grade: Normal +2 - Labs Labs: Abnormal lab results 02/25/22 02/25/22 02/25/22 Range/Units 14:35 14:35 Unknown MCV 76 L (79-97) fl MCH 22 L (28-32) pg MCHC 29 L (30-34) % RDW 19.7 H (13.2-15.2) % Alkaline Phosphatase 140 H (35-129) units/L NT-Pro-B Natriuret Pep 634.1 H (0-450) pg/mL Urine WBC (Auto) 25.0 H (0.0-6.0) /HPF
--- NOTE | 2022-02-26 08:52 | Consultation ---
History of Present Illness - Reason for Consult Consult date: 02/25/22 hypertension - History of Present Illness Patient is a 36-year-old female with history of hypertension and asthma who presented to the emergency department for elevated blood pressure checkup. Patient reports a previous history of hypertension prior to the of her 2 children. She was taking hydrochlorothiazide at that time. Since becoming , she was started on labetalol 200 mg twice daily she delivered her daughter approximately 2 weeks ago and was discharged. At checkup on Thursday , her blood pressure medication was discontinued and she was started on Procardia 30mg daily for blood pressure control. Since that time, patient reports a headache that would not go away. She measured her own blood pressures at home and was able to recall 2 readings: 160/105 and 174/110. She denies chest pain, shortness of breath, lightheadedness, dizziness and visual changes. She does have bilateral lower extremity edema which has been persistent since childbirth. On admission, blood pressure was 184/109. Labs are notable for NTproBNP of 634.1 CT of the head was negative for acute findings. Echocardiogram is pending at the time of this note. She is admitted for hypertensive urgency /preeclampsia. Medicine was consulted for hypertension management. Past History Past Medical History: hypertension, other (asthma) Past Surgical History: Other (breast reduction) Social history: lives with family. denies: smoking, alcohol abuse, prescription drug abuse, IV drug use Family history: no significant family history Medications and Allergies Allergies Allergy/AdvReac Type Severity Reaction Status Date / Time codeine Allergy Hives Verified 12/11/21 22:04 Home Medications Medication Instructions Recorded Confirmed Last Taken Type Aspirin 81 mg PO QDAY 02/11/22 02/11/22 Unknown History Omeprazole 40 mg PO QDAY 02/11/22 02/11/22 Unknown History Vitamin 1 tab PO QDAY 02/11/22 02/11/22 Unknown History Valacyclovir 1 gram PO QDAY 02/11/22 02/11/22 Unknown History Ferrous Sulfate [Feosol 325 MG tab] 325 mg PO BID #60 tablet 02/13/22 Unknown Rx Ibuprofen [Motrin 800 MG tab] 800 mg PO Q8HR PRN #30 tablet 02/13/22 Unknown Rx labetaloL [Labetalol 200mg TAB] 200 mg PO BID #60 tab 02/13/22 Unknown Rx Active Meds: Active Medications Lactated Ringer's (Lactated Ringers) 1,000 mls @ 125 mls/hr IV DIRECT [facility] Last Admin: 02/25/22 21:17 Dose: 125 mls/hr Ibuprofen (Ibuprofen 800 Mg Tab) 800 mg PO Q8H PRN PRN Reason: Pain, Mild (1-3) Last Admin: 02/26/22 07:24 Dose: 800 mg Labetalol HCl (Labetalol 100 Mg Tab) 200 mg PO BID [facility] Last Admin: 02/25/22 21:46 Dose: 200 mg Nifedipine (Nifedipine Xl 30 Mg Tab) 30 mg PO QDAY [facility] Review of Systems Constitutional: no weight loss, no weight gain, no fever, no chills, no sweats Ears, nose, mouth and throat: headache, no nasal congestion, no nasal discharge, no sinus pressure, no sinus pain, no vertigo Breasts: deferred Cardiovascular: edema, high blood pressure, leg edema, no chest pain, no orthopnea, no palpitations, no syncope, no lightheadedness, no shortness of breath, no decreased exercise tolerance Respiratory: no cough, no shortness of breath, no congestion, no wheezing, no pain on inspiration, no home oxygen Gastrointestinal: no abdominal pain, no nausea, no vomiting, no change in bowel habits Genitourinary Female: abnormal vaginal bleeding, no genital sores Menstruation: period normal Musculoskeletal: no neck stiffness, no arm numbness/tingling, no low back pain, no shooting leg pain Integumentary: deferred Neurological: headaches, no head injury, no paralysis, no parathesias, no numbness, no seizures, no syncope, no vertigo, no migraines, no change in speech, no change in mentation, no gait dysfunction, no double vision, no loss of vision Psychiatric: depression, sadness/tearfullness Endocrine: no cold intolerance, no heat intolerance Exam - Physical Exam Narrative exam: GENERAL: Well-developed well-nourished. In no acute distress. HEENT: Normocephalic. Atraumatic. NECK: Supple. CHEST/LUNGS: CTAB on room air HEART/CARDIOVASCULAR: RRR. No murmur, rubs or gallops appreciated. ABDOMEN: +BS. ND. Mild tenderness to palpation at bilateral lower quadrant. SKIN: No rashes noted. NEURO: No focal motor deficit. Follows all commands and is ambulatory. MUSCULOSKELETAL: No joint effusion EXTREMITIES: No cyanosis, clubbing. Pedal edema noted bilaterally. PSYCH: Cooperative. - Constitutional Vitals: Temp Pulse Resp BP Pulse Ox 98.4 F 85 18 158/91 96 02/26/22 07:31 02/26/22 08:45 02/25/22 18:57 02/26/22 08:22 02/26/22 08:45 Results - Labs CBC & Chem 7: 02/25/22 14:35 02/25/22 14:35 Labs: Abnormal lab results 02/25/22 02/25/22 02/25/22 Range/Units 14:35 14:35 Unknown MCV 76 L (79-97) fl MCH 22 L (28-32) pg MCHC 29 L (30-34) % RDW 19.7 H (13.2-15.2) % Alkaline Phosphatase 140 H (35-129) units/L NT-Pro-B Natriuret Pep 634.1 H (0-450) pg/mL Urine WBC (Auto) 25.0 H (0.0-6.0) /HPF Assessment and Plan 36-year-old female history of asthma and hypertension who presented with findings significant for preeclampsia. Patient blood pressure currently controlled with restarting of labetalol and Procardia at home doses. #Preeclampsia #Hypertensive urgency -initial BP 184/109, recent reading 138/90 -CT head negative for acute findings, ARAIZA resolved -continue procardia and metoprolol at current doses, patient will likely need both at discharge -patient advised to follow up closely with her PCP for medication adjustments -will continue to monitor #Lower extremity swelling -Patient with pain in left lower extremity -Bilateral venous duplex ordered -Echocardiogram ordered #History of asthma, not in acute exacerbation -Patient uses albuterol as needed at home -will order albuterol for PRN use #Advanced care planning -Disease education conducted, care plan discussed, diagnoses discussed, prognosis discussed, and patient acknowledges understanding with care plan -Time: +30 min
[2022-02-26] MEDS: NIFEdipine XL 30 MG TAB PO SCH (09:24)
--- NOTE | 2022-02-26 17:01 | Vascular Lab Report ---
DUPLEX DOPPLER LOWER EXTREMITY VEINS, BILATERAL INDICATION / CLINICAL INFORMATION: leg pain and swelling. TECHNIQUE: Duplex doppler imaging was performed through the veins of both lower extremities using gricelda ous compression and other maneuvers. COMPARISON: Bilateral lower extremity venous Doppler 12/13/2021. FINDINGS: RIGHT COMMON FEMORAL VEIN: Negative. RIGHT FEMORAL VEIN: Negative. RIGHT POPLITEAL VEIN: Negative. RIGHT CALF VEINS: Negative. LEFT COMMON FEMORAL VEIN: Negative. LEFT FEMORAL VEIN: Negative. LEFT POPLITEAL VEIN: Negative. LEFT CALF VEINS: Negative. ADDITIONAL FINDINGS: Small right knee effusion. IMPRESSION: 1. No sonographic evidence for DVT in either lower extremity. Scribed by: Anali Russell RDMS, JORGE A, JUDITH Scribed: 02/26/2022 2:56 PM I have reviewed the images, agree with this report, and edited this report as needed. Signer Name: Haris Theodore MD Signed: 02/26/2022 4:57 PM Workstation Name: [id number]
--- NOTE | 2022-02-27 08:03 | Progress Note ---
Assessment and Plan patient anxious d/t at home with both 1 year old and , she denies ARAIZA/visual changes or epigastric pain. Plan to transfer to [facility], appreciate hospitalist continue assistance with b/p control. Labetalol increased to 300mg PO BID as most recent systolics are 140's - 160's. - Patient Problems (1) Pre-eclampsia in puerperium Current Visit: Yes Status: Acute (2) BMI 50.0-59.9, adult Current Visit: No Status: Acute (3) Asthma Current Visit: No Status: Chronic Qualifiers: Asthma severity: mild (4) HTN (hypertension) Current Visit: No Status: Chronic Qualifiers: Hypertension type: primary hypertension Qualified Code(s): I10 - Essential (primary) hypertension Plan to address problem: Labetalol increased to 300MG PO BID Subjective - Subjective Date of service: 02/27/22 Principal diagnosis: day #16; readmit for b/p control Interval history: Past History : 2 Term Births: 1 Premature Births: 1 Living Children: 1 Para: 1 Mult. Births: 0 Prev : 0 Aborta: 0 Elect. Ab: 0 Spont. Ab: 0 Ectopics: 0 # 1 Delivery date: 11/2020 Weeks Gestation: 29 labor: yes Delivery type: Delivery location: [facility] Sex: Female Comments: Came in in labor. Went to hospital for contractions and bleeding. Had mag for labor. Possible elevated blood pressures. Pre eclampsia?. 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 % Sun Exposure: frequently Family History Risk Factors: Family History of VA in 1 Female Relative Age < 65: yes Family History of VA in 1 Male Relative Age < 55: yes No Dietary Counseling Reason: pn yes PAP Smear History: Date of Last PAP Smear: 07/12/2021 Results: Normal PAP Smear History: Date of Last PAP Smear: 07/04/2021 Results: normal PAP Smear History: Date of Last PAP Smear: 07/04/2021 Results: normal Alcohol Use: no Drug Use: no Past Medical History Anesthesia Complications: negative Anemia: positive Autoimmune Disorder: negative Bleeding Disorder: negative Blood Transfusions: negative Breast Disease: negative Diabetes: negative Heart Disease: negative Hypertension: positive Hepatitis/Liver Disease: negative Kidney Disease/UTI: negative Neurologic/Epilepsy/Migraines: negative Phlebitis/Varicosities: negative Psychiatric: negative Pulmonary Disease/Asthma: negative Thyroid Disease: negative Hospitalizations: negative Surgery (Non-gum dipper): negative Abnormal PAP: negative SAVANNAH Exposure: negative Infertility: negative Uterine Anomaly: negative Uterine Surgery (not C/S): negative Other Gynecologic Problems: negative Social Hx: Patient is single Smoking History: Patient has never smoked. Infection History Hx of STD: none HIV Risk Eval: no Hepatitis B Risk Eval: low risk Personal hx. of genital herpes: yes Partner hx. of genital herpes: yes Rash, Viral, or Febrile illness since last LMP? no Varicella/Chicken Pox Status: Previous Disease TB Risk: no Genetic History ADVANCED MATERNAL AGE Congenital Heart Defect: Mom: no Dad: no Db Disease: Mom: no Dad: no Thalassemia Mom: no Dad: no Neural Tube Defect Mom: no Dad: no Down's Syndrome Mom: no Dad: no Jamie-Sachs Mom: no Dad: no Sickle Cell Disease/Trait Mom: no Dad: no Hemophilia Mom: no Dad: no Muscular Dystrophy Mom: no Dad: no Cystic Fibrosis Mom: no Dad: no [place] Chorea Mom: no Dad: no Mental Retardation Mom: no Dad: no Fragile X Mom: no Dad: no Other Genetic/Chromosomal Disorder Mom: no Dad: no Child w/other defect Mom: no Dad: no Patient reports: appetite normal, voiding normally, pain well controlled, ambulating normally, no dizzy ambulation, no nauseated Objective - Vital Signs Latest vital signs: Vital Signs Temp Pulse Resp BP BP Pulse Ox Pulse Ox 02/27/22 07:52 77 156/92 02/27/22 07:22 69 163/89 02/27/22 07:21 71 98 02/27/22 07:16 72 98 02/27/22 07:11 71 98 02/27/22 07:06 79 98 02/27/22 07:05 98.0 F 02/27/22 07:01 69 97 02/27/22 06:56 69 97 02/27/22 06:53 70 165/87 02/27/22 06:51 70 97 02/27/22 06:46 68 97 02/27/22 06:41 69 98 02/27/22 06:36 64 98 02/27/22 06:31 72 97 02/27/22 06:26 72 97 02/27/22 06:22 71 137/94 02/27/22 06:21 67 97 02/27/22 06:16 66 96 02/27/22 06:13 70 93 02/27/22 06:11 66 95 02/27/22 06:06 72 88 02/27/22 06:05 72 88 02/27/22 06:01 66 97 02/27/22 05:59 70 94 02/27/22 05:56 70 94 02/27/22 05:54 69 94 02/27/22 05:52 73 147/87 02/27/22 05:51 74 96 02/27/22 05:48 71 92 02/27/22 05:46 68 93 02/27/22 05:42 71 90 02/27/22 05:41 71 96 02/27/22 05:36 71 96 02/27/22 05:31 70 96 02/27/22 05:26 68 96 02/27/22 05:22 93 H 125/89 02/27/22 05:21 70 96 02/27/22 05:16 68 96 02/27/22 05:11 69 96 02/27/22 05:06 69 95 02/27/22 05:01 71 96 02/27/22 04:56 71 97 02/27/22 04:52 69 143/86 02/27/22 04:51 71 95 02/27/22 04:48 67 94 02/27/22 04:46 67 96 02/27/22 04:41 69 99 02/27/22 04:40 71 91 02/27/22 04:36 68 95 02/27/22 04:34 67 93 02/27/22 04:31 75 96 02/27/22 04:26 68 94 02/27/22 04:24 75 94 02/27/22 04:22 69 132/83 0822 04:21 67 97 02/27/22 04:16 67 97 02/27/22 04:11 69 97 02/27/22 04:06 67 97 02/27/22 04:01 67 97 02/27/22 03:56 70 96 02/27/22 03:52 75 134/87 02/27/22 03:51 73 95 02/27/22 03:46 71 95 02/27/22 03:41 69 96 02/27/22 03:36 70 96 02/27/22 03:31 68 99 02/27/22 03:26 70 98 02/27/22 03:22 68 143/80 02/27/22 03:21 68 100 02/27/22 03:16 70 99 02/27/22 03:12 72 89 02/27/22 03:11 71 99 02/27/22 03:06 69 100 02/27/22 03:05 72 92 02/27/22 03:01 68 99 02/27/22 02:58 74 92 02/27/22 02:56 80 96 02/27/22 02:52 65 133/77 02/27/22 02:51 73 97 02/27/22 02:46 70 97 02/27/22 02:41 71 97 02/27/22 02:36 73 97 02/27/22 02:31 71 98 02/27/22 02:26 71 99 02/27/22 02:22 76 130/81 02/27/22 02:21 71 97 02/27/22 02:16 72 97 02/27/22 02:11 71 97 02/27/22 02:06 72 97 02/27/22 02:01 71 97 02/27/22 01:56 71 97 02/27/22 01:52 71 138/80 02/27/22 01:51 73 97 02/27/22 01:46 84 96 02/27/22 01:41 70 98 02/27/22 01:36 73 96 02/27/22 01:33 71 94 02/27/22 01:31 71 97 02/27/22 01:27 74 94 02/27/22 01:26 68 98 02/27/22 01:22 71 144/81 94 02/27/22 01:21 79 96 02/27/22 01:16 79 93 08/04/22 01:15 76 94 02/27/22 01:11 72 100 02/27/22 01:09 73 93 02/27/22 01:06 78 93 02/27/22 01:03 74 93 02/27/22 01:01 82 91 02/27/22 00:58 73 94 02/27/22 00:56 76 93 02/27/22 00:52 72 141/78 94 02/27/22 00:51 70 96 02/27/22 00:46 71 97 02/27/22 00:41 81 98 02/27/22 00:36 72 96 02/27/22 00:35 75 94 02/27/22 00:31 74 96 02/27/22 00:26 72 95 02/27/22 00:22 69 135/77 02/27/22 00:21 72 96 02/27/22 00:16 74 96 02/27/22 00:11 73 96 02/27/22 00:06 71 98 02/27/22 00:01 75 97 02/26/22 23:56 83 99 02/26/22 23:52 77 138/87 02/26/22 23:51 77 98 02/26/22 23:46 74 97 02/26/22 23:41 77 98 02/26/22 23:36 77 99 02/26/22 23:31 76 99 02/26/22 23:26 78 99 02/26/22 23:22 76 147/81 02/26/22 23:21 84 99 02/26/22 23:16 78 99 02/26/22 23:11 84 91 02/26/22 23:10 82 92 02/26/22 22:41 77 99 02/26/22 22:36 81 97 02/26/22 22:31 81 98 02/26/22 22:26 82 97 08 22:22 78 144/81 02/26/22 22:21 79 97 02/26/22 22:16 82 98 02/26/22 22:11 83 99 02/26/22 22:06 90 99 02/26/22 22:01 94 H 99 02/26/22 21:56 86 99 02/26/22 21:52 83 155/89 02/26/22 21:51 80 98 02/26/22 21:48 80 137/83 08 21:46 81 99 02/26/22 21:41 77 99 08 21:36 80 99 02/26/22 21:31 80 99 08 21:26 81 98 08 21:22 78 137/83 02/26/22 21:21 78 98 02/26/22 21:16 88 97 02/26/22 20:55 84 100 02/26/22 20:49 92 H 100 02/26/22 20:45 78 99 02/26/22 20:40 79 100 02/26/22 20:35 88 99 02/26/22 20:30 84 99 02/26/22 20:25 84 98 02/26/22 20:22 76 138/91 02/26/22 20:20 84 99 02/26/22 20:15 82 99 02/26/22 20:10 89 98 02/26/22 20:05 85 97 02/26/22 20:00 86 98 02/26/22 19:59 98 02/26/22 19:55 87 98 02/26/22 19:52 80 140/86 02/26/22 19:50 86 99 02/26/22 19:45 88 99 02/26/22 19:40 83 98 02/26/22 19:35 80 98 02/26/22 19:30 76 98 02/26/22 19:25 74 98 02/26/22 19:22 76 148/93 02/26/22 19:19 79 99 02/26/22 19:15 76 98 02/26/22 19:10 80 97 02/26/22 19:04 83 96 02/26/22 19:00 78 98 02/26/22 18:55 85 99 02/26/22 18:52 76 149/90 02/26/22 18:50 69 96 02/26/22 18:45 84 95 02/26/22 18:42 74 94 08 18:40 75 95 02/26/22 18:35 74 98 02/26/22 18:30 76 96 08 18:25 75 98 08 18:22 80 135/92 02/26/22 18:20 82 97 02/26/22 18:15 79 98 0803/22 18:10 78 99 02/26/22 18:07 98.1 F 86 20 129/75 98 02/26/22 18:05 83 99 02/26/22 18:00 82 99 02/26/22 17:55 88 98 02/26/22 17:52 86 129/75 02/26/22 17:50 84 98 02/26/22 17:30 84 99 02/26/22 17:25 79 99 02/26/22 17:22 81 141/85 02/26/22 17:20 79 98 02/26/22 17:15 84 99 02/26/22 17:10 81 92 02/26/22 17:04 89 98 02/26/22 17:00 90 99 02/26/22 16:55 86 97 02/26/22 16:52 82 155/89 02/26/22 16:50 90 99 02/26/22 16:45 89 99 02/26/22 16:28 80 99 02/26/22 16:23 78 98 02/26/22 16:22 77 159/92 02/26/22 16:18 84 99 02/26/22 16:13 83 99 02/26/22 16:08 77 99 02/26/22 16:01 88 98 02/26/22 15:56 88 99 02/26/22 15:52 82 143/88 02/26/22 15:51 85 98 02/26/22 15:46 86 99 02/26/22 15:41 85 98 02/26/22 15:36 83 96 02/26/22 15:31 83 100 02/26/22 15:26 80 98 02/26/22 15:22 81 151/96 02/26/22 15:21 82 99 02/26/22 15:16 77 98 02/26/22 15:11 83 99 02/26/22 15:06 75 99 02/26/22 15:01 76 99 02/26/22 14:56 80 99 02/26/22 14:52 75 138/90 02/26/22 14:50 75 99 02/26/22 14:46 76 99 02/26/22 14:41 86 98 02/26/22 14:36 94 H 97 02/26/22 14:31 78 97 02/26/22 14:26 76 97 02/26/22 14:22 74 133/85 02/26/22 14:21 74 97 02/26/22 14:16 75 98 02/26/22 14:11 76 99 02/26/22 14:06 76 98 02/26/22 14:01 80 97 02/26/22 13:55 76 97 02/26/22 13:54 76 91 02/26/22 13:52 75 147/84 02/26/22 13:51 78 98 02/26/22 13:46 73 89 02/26/22 13:45 73 89 02/26/22 13:41 74 98 02/26/22 13:39 77 93 02/26/22 13:35 73 96 02/26/22 13:31 76 96 02/26/22 13:25 78 96 02/26/22 13:22 71 138/81 02/26/22 13:21 76 95 02/26/22 13:18 87 89 02/26/22 13:16 76 95 02/26/22 13:12 73 94 02/26/22 13:10 74 95 02/26/22 13:06 75 96 02/26/22 13:00 73 98 02/26/22 12:57 71 94 02/26/22 12:56 72 96 02/26/22 12:52 76 136/82 02/26/22 12:51 81 98 02/26/22 12:46 79 97 02/26/22 12:40 75 97 02/26/22 12:36 76 99 02/26/22 12:30 78 96 02/26/22 12:25 86 99 02/26/22 12:22 81 122/65 02/26/22 12:21 68 93 02/26/22 12:20 87 02/26/22 12:00 89 97 02/26/22 11:55 90 97 02/26/22 11:52 82 141/87 02/26/22 11:50 83 97 02/26/22 11:45 72 96 02/26/22 11:40 73 96 02/26/22 11:35 77 96 02/26/22 11:33 95 H 91 02/26/22 11:30 87 96 02/26/22 11:26 86 94 02/26/22 11:25 96 H 97 02/26/22 11:22 81 142/85 02/26/22 11:21 86 99 02/26/22 11:15 88 98 02/26/22 11:10 79 97 02/26/22 11:05 87 97 02/26/22 11:00 86 98 02/26/22 10:55 84 97 02/26/22 10:52 83 134/81 02/26/22 10:51 88 93 02/26/22 10:50 89 98 02/26/22 10:45 76 98 08 10:40 83 98 02/26/22 10:35 80 98 02/26/22 10:30 82 95 02/26/22 10:27 75 94 02/26/22 10:25 77 95 08 10:22 76 125/73 02/26/22 10:20 77 94 02/26/22 10:15 90 97 02/26/22 10:10 80 97 02/26/22 10:05 73 99 02/26/22 10:00 90 97 02/26/22 09:55 84 97 02/26/22 09:52 82 167/102 02/26/22 09:50 92 H 99 02/26/22 09:45 71 99 02/26/22 09:40 69 99 02/26/22 09:35 71 97 02/26/22 09:30 89 99 02/26/22 09:26 98 02/26/22 09:25 75 97 02/26/22 09:23 74 154/102 02/26/22 09:20 70 97 02/26/22 09:19 71 93 02/26/22 09:15 72 97 02/26/22 09:14 81 94 02/26/22 09:10 70 96 02/26/22 09:05 74 96 02/26/22 09:00 77 97 02/26/22 08:55 71 97 02/26/22 08:53 71 152/88 02/26/22 08:50 77 98 02/26/22 08:45 85 96 02/26/22 08:40 86 98 02/26/22 08:36 74 98 08 08:30 70 97 02/26/22 08:25 83 97 02/26/22 08:22 76 158/91 02/26/22 08:20 80 98 0803/22 08:15 93 H 97 - Exam Breasts: Present: normal, Cardiovascular: Present: Regular rate Lungs: Present: Normal air movement Abdomen: Present: normal appearance, soft Vulva: both: normal Uterus: Present: normal Extremities: Present: normal, edema Deep Tendon Reflex Grade: Normal +2
--- NOTE | 2022-02-27 08:53 | Progress Note ---
Assessment and Plan Assessment and plan: 36-year-old female history of asthma and hypertension who presented with findings significant for preeclampsia. Patient blood pressure improved with restarting of labetalol and Procardia at home doses. #Preeclampsia #Hypertensive urgency-resolved #Hypertension -CT head negative for acute findings, ARAIZA resolved -continue procardia and metoprolol at current doses, patient will need both at discharge -patient advised to follow up closely with her PCP for medication adjustments #Lower extremity swelling -Patient with pain in left lower extremity -Bilateral venous duplex ordered negative for DVT -Echocardiogram in November shows normal EF, no need to repeat due to study being less than 6 months old #History of asthma, not in acute exacerbation -Patient uses albuterol as needed at home -will order albuterol for PRN use Thank you for this consult, please call with questions and concerns. History Interval history: No acute events overnight. Patient reports resolution of her headache and she is currently awaiting a psychiatry evaluation. We discussed the results of the Doppler and her needing to follow-up with her PCP closely at discharge for better blood pressure control. Hospitalist Physical - Physical exam Narrative exam: GENERAL: Well-developed well-nourished. In no acute distress. HEENT: Normocephalic. Atraumatic. NECK: Supple. CHEST/LUNGS: CTAB on room air HEART/CARDIOVASCULAR: RRR. No murmur, rubs or gallops appreciated. ABDOMEN: +BS. ND. Mild tenderness to palpation at bilateral lower quadrant. SKIN: No rashes noted. NEURO: No focal motor deficit. Follows all commands and is ambulatory. MUSCULOSKELETAL: No joint effusion EXTREMITIES: No cyanosis, clubbing. Pedal edema noted bilaterally. PSYCH: Cooperative. - Constitutional Vitals: Temp Pulse Resp BP Pulse Ox 98.0 F 86 20 140/86 99 02/27/22 07:05 02/27/22 08:49 02/26/22 18:07 02/27/22 08:22 02/27/22 08:49 HEART Score - HEART Score Troponin: Troponin T < 0.010 ng/mL (0.00-0.029) 02/25/22 14:35 Results - Labs CBC & Chem 7: 02/25/22 14:35 02/25/22 14:35 Labs: Laboratory Last Values WBC 7.1 K/mm3 (4.5-11.0) 02/25/22 14:35 RBC 4.71 M/mm3 (3.65-5.03) 02/25/22 14:35 Hgb 10.4 gm/dl (10.1-14.3) 02/25/22 14:35 Hct 35.7 % (30.3-42.9) 02/25/22 14:35 MCV 76 fl (79-97) L 02/25/22 14:35 MCH 22 pg (28-32) L 02/25/22 14:35 MCHC 29 % (30-34) L 02/25/22 14:35 RDW 19.7 % (13.2-15.2) H 02/25/22 14:35 Plt Count 283 K/mm3 (140-440) 02/25/22 14:35 Sodium 142 mmol/L (137-145) 02/25/22 14:35 Potassium 4.1 mmol/L (3.6-5.0) 02/25/22 14:35 Chloride 106.6 mmol/L (98-107) 02/25/22 14:35 Carbon Dioxide 25 mmol/L (22-30) 02/25/22 14:35 Anion Gap 15 mmol/L 02/25/22 14:35 BUN 7 mg/dL (7-17) 02/25/22 14:35 Creatinine 0.8 mg/dL (0.6-1.2) 02/25/22 14:35 Estimated GFR > 60 ml/min 02/25/22 14:35 BUN/Creatinine Ratio 9 % 02/25/22 14:35 Glucose 77 mg/dL (65-100) 02/25/22 14:35 Uric Acid 6.7 mg/dL (3.5-7.6) 02/25/22 14:35 Calcium 9.4 mg/dL (8.4-10.2) 02/25/22 14:35 Total Bilirubin 0.40 mg/dL (0.1-1.2) 02/25/22 14:35 AST 25 units/L (5-40) 02/25/22 14:35 ALT 23 units/L (7-56) 02/25/22 14:35 Alkaline Phosphatase 140 units/L (35-129) H 02/25/22 14:35 Troponin T < 0.010 ng/mL (0.00-0.029) 02/25/22 14:35 NT-Pro-B Natriuret Pep 634.1 pg/mL (0-450) H 02/25/22 14:35 Total Protein 6.4 g/dL (6.3-8.2) 02/25/22 14:35 Albumin 4.0 g/dL (3.9-5) 02/25/22 14:35 Albumin/Globulin Ratio 1.7 % 02/25/22 14:35 Urine Color Straw (Yellow) 02/25/22 Unknown Urine Turbidity Clear (Clear) 02/25/22 Unknown Urine pH 7.0 (5.0-7.0) 02/25/22 Unknown Ur Specific [place] 1.025 (1.003-1.030) 02/25/22 Unknown Urine Protein <15 mg/dl mg/dL (Negative) 02/25/22 Unknown Urine Glucose (UA) Negative mg/dL (Negative) 02/25/22 Unknown Urine Ketones Negative mg/dL (Negative) 02/25/22 Unknown Urine Blood 3+ (Negative) 02/25/22 Unknown Urine Nitrite Negative (Negative) 02/25/22 Unknown Urine Bilirubin Negative (Negative) 02/25/22 Unknown Urine Urobilinogen 0.0 mg/dL (<2.0) 02/25/22 Unknown Ur Leukocyte Esterase 2+ (Negative) 02/25/22 Unknown Urine WBC (Auto) 25.0 /HPF (0.0-6.0) H 02/25/22 Unknown Urine RBC (Auto) 2.0 /HPF (0.0-6.0) 02/25/22 Unknown U Epithel Cells (Auto) 3.0 /HPF (0-13.0) 02/25/22 Unknown Urine Bacteria (Auto) 1+ /HPF (Negative) 02/25/22 Unknown Urine Mucus 1+ /HPF 02/25/22 Unknown SARS-CoV-2 (PCR) Negative (Negative) 02/26/22 12:33 Active Medications - Current Medications Current Medications: Generic Name Dose Route Start Last Admin Trade Name Freq PRN Reason Stop Dose Admin Ibuprofen 800 mg 02/25/22 21:19 02/26/22 21:48 Ibuprofen 800 Mg Tab PO 800 mg Q8H PRN Administration Pain, Mild (1-3) Labetalol HCl 100 mg 02/27/22 10:00 Labetalol 100 Mg Tab PO BID [facility] Labetalol HCl 200 mg 02/27/22 10:00 Labetalol 200 Mg Tab PO BID [facility] Nifedipine 30 mg 02/26/22 10:00 02/26/22 09:24 Nifedipine Xl 30 Mg Tab PO 30 mg QDAY [facility] Administration
[2022-02-27] MEDS: NIFEdipine XL 30 MG TAB PO SCH (09:27)
--- NOTE | 2022-02-27 13:52 | Consultation ---
History of Present Illness - Reason for Consult Consult date: 02/27/22 Reason for consult: depression - History of Present Psychiatric Illness The patient was seen today via telepsych. She is a/o x 3. She is cooperative and polite. The patient says she has suffered from depression for years. She says she was on Celexa but it was discontinued after becoming . The patient says she is sad, overwhelmed and cries a lot. She denies SI/HI or a past attempt of suicide. She denies hallucinations. Discussed with the patient the benefits of therapy.The patient also denies any illicit drug use, alcohol or nicotine. She says she would like to get on something for the depression but didn't know what she could take because she's . PAST PSYCHIATRIC HISTORY: Diagnoses: Depression Suicide attempts or Self-harm behavior: Denies Prior psychiatric hospitalizations: Denies Substance Abuse history: Denies Previous psychiatric medications tried: Celexa Outpatient treatment: Denies PAST MEDICAL HISTORY: None reported Family Psychiatric History: None reported SOCIAL HISTORY Marital Status: Living Arrangements: Employment Status: Employed Access to guns/weapons: Denies Education: college History of Abuse: Denies Legal History: Denies REVIEW OF SYSTEMS Constitutional: Negative for weight loss ENT: Negative for stridor Respiratory: Negative for cough or hemoptysis All other systems reviewed and are negative MENTAL STATUS General Appearance and Behavior: age appropriate, good eye contact, cooperative with questioning and polite Cooperation: Cooperative Psychomotor Behavior: within normal limits Mood: depressed Affect and affective range: Thought Process: goal directed Thought Content: None Speech: Normal volume and Regular rate and rhythm Suicidal Ideation: Denies Homicidal Ideation: Denies Hallucinations: Denies Impulse Control: intact Insight and Judgment: Normal Memory: Normal Attention: Normal Orientation: alert and oriented Assessment Major Depressive Disorder Treatment Plan Zoloft 25mg po daily Medical: Per primary Disposition: Do not recommend acute psychiatric inpatient treatment Flag Signaler to give the patient all necessary resources Will sign off. Thanks Case staffed with Dr. Soto Medications and Allergies Allergies Allergy/AdvReac Type Severity Reaction Status Date / Time codeine Allergy Hives Verified 12/11/21 22:04 Home Medications Medication Instructions Recorded Confirmed Last Taken Type Aspirin 81 mg PO QDAY 02/11/22 02/11/22 Unknown History Omeprazole 40 mg PO QDAY 02/11/22 02/11/22 Unknown History Vitamin 1 tab PO QDAY 02/11/22 02/11/22 Unknown History Valacyclovir 1 gram PO QDAY 02/11/22 02/11/22 Unknown History Ferrous Sulfate [Feosol 325 MG tab] 325 mg PO BID #60 tablet 02/13/22 Unknown Rx Ibuprofen [Motrin 800 MG tab] 800 mg PO Q8HR PRN #30 tablet 02/13/22 Unknown Rx labetaloL [Labetalol 200mg TAB] 200 mg PO BID #60 tab 02/13/22 Unknown Rx Active Meds: Active Medications Ibuprofen (Ibuprofen 800 Mg Tab) 800 mg PO Q8H PRN PRN Reason: Pain, Mild (1-3) Last Admin: 02/26/22 21:48 Dose: 800 mg Labetalol HCl (Labetalol 100 Mg Tab) 100 mg PO BID [facility] Last Admin: 02/27/22 09:28 Dose: 100 mg Labetalol HCl (Labetalol 200 Mg Tab) 200 mg PO BID [facility] Last Admin: 02/27/22 09:28 Dose: 200 mg Nifedipine (Nifedipine Xl 30 Mg Tab) 30 mg PO QDAY [facility] Last Admin: 02/27/22 09:27 Dose: 30 mg Mental Status Exam - Vital signs Last Vital Signs Temp 98.7 F 02/27/22 11:41 Pulse 75 02/27/22 11:41 Resp 20 02/27/22 11:41 BP 147/86 02/27/22 12:47 Pulse Ox 98 02/27/22 11:41 Results Result Diagrams: 02/25/22 14:35 02/25/22 14:35 All other labs normal.
[2022-02-27] MEDS: SERTRALINE 25 MG TAB PO SCH (17:11)
--- NOTE | 2022-02-27 18:16 | Electrocardiograph Report ---
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
--- NOTE | 2022-02-27 18:17 | Electrocardiograph Report ---
[facility] Test Date: 2022-02-25 Test Time: 17:05:23 Pat Name: CHUCK KINGSLEY Department: Room: 2103 1 Gender: F Software Security Consultant: KIMANI : 1985 Requested By: BONIFACIO LEVY Order Number: [id number] Reading MD: Sheila Guerra Measurements Intervals [place] Rate: 75 P: 53 [place]: 146 QRS: 29 QRSD: 84 T: 37 QT: 386 QTc: 432 Interpretive Statements Sinus rhythm Poor R wave progression, consider old anterior infarct Compared to ECG 02/25/2022 13:46:13 No significant change Electronically Signed On 02-27-2022 18:17:13 EDT by Sheila Guerra
[2022-02-27] MEDS: IBUPROFEN 800 MG TAB PO PRN (21:57)
--- NOTE | 2022-02-28 08:14 | Event Note ---
Date: 02/28/22 Patient blood pressure has improved with labetalol 300 mg twice daily + Procardia 30 XL. Recommend the patient follow-up with her primary care doctor for further titration. Thank you for this consult and we will sign off at this time.
--- NOTE | 2022-02-28 09:09 | Discharge Summary ---
Providers - Providers Date of Admission: 02/25/22 15:02 Date of discharge: 02/28/22 Attending physician: LISA TAMAYO 02/25/22 19:33 Consult to Physician [CONS] Routine Comment: [id number] Consulting Provider: LUCAS GAMEZ Physician Instructions: Reason For Exam: b/p control- chtn 02/26/22 08:35 Consult to Mental Health [CONS] Routine Reason For Exam: Post Depression Primary care physician: BRENDAN GRAMAJO Hospitalization Condition: Good Procedures: EKG, psychiatric consult, lower extremity Dopplers. Hospital course: Is a 36-year-old female status post vaginal delivery on 02/11/2022 at full-term. She has a history of chronic hypertension. Her delivery course was significant for magnesium sulfate therapy for elevated blood pressures/ mild preeclampsia. She was discharged home on labetalol 200 twice daily. However in the interval patient noted to have severely elevated blood pressures and with a headache and presented to the emergency room for evaluation. Her CT scan was normal. Elevated blood pressures were noted. She was admitted to the labor and delivery unit for blood pressure control. Hospitalist were consulted for assistance with blood pressure control. Echocardiogram was ordered however it was determined not necessary at this time since she had one approximately 6 months ago. Patient was placed on labetalol 300 mg twice a day as well as Procardia 30 mg XL once daily. Pressures have been controlled. Patient complained of depression during her hospitalization. She had a psychiatric evaluation and patient was started on labetalol. This time patient is doing well she has no complaints and desires discharge home. Disposition: 01 HOME / SELF CARE / HOMELESS Final Discharge Diagnosis (Prints w/discharge instructions): Uncontrolled blood pressures, depression - Discharge Diagnoses (1) Hypertension, uncontrolled Status: Chronic (2) BMI 50.0-59.9, adult Status: Chronic Core Measure Documentation - Palliative Care Palliative Care/ Comfort Measures: Not Applicable - Core Measures Any of the following diagnoses?: none Exam - Constitutional Vitals: Temp Pulse Resp BP Pulse Ox 98.3 F 71 18 152/85 96 02/28/22 07:54 02/28/22 07:54 02/28/22 07:54 02/28/22 07:54 02/28/22 07:54 General appearance: Present: no acute distress Plan Activity: other (Continue discharge instructions.) Weight Bearing Status: Full Weight Bearing Diet: low cholesterol, low salt Special Instructions: no heavy lifting (Greater than 25 pound) Follow up with: BRENDAN GRAMAJO MD [Primary Care Provider] - 7 Days DESTINEE ALMANZA MD [Staff Physician] - (As scheduled) Prescriptions: labetaloL [Labetalol 100mg TAB] 300 mg PO BID #90 tablet NIFEdipine XL [Procardia Xl] 30 mg PO QDAY #90 tablet Sertraline [Zoloft] 25 mg PO QDAY #30 tab
--- NOTE | 2022-02-28 09:38 | Event Note ---
Date: 02/28/22 S/w Dr. Paredes states EKG is fine, will allow home.
[2022-02-28] MEDS: NIFEdipine XL 30 MG TAB PO SCH (10:01)
[2022-02-28] MEDS: SERTRALINE 25 MG TAB PO SCH (10:01)
[2022-02-28 15:15] VITALS: BP 136/83
== END 2022-02-28 12:30 | disposition home or self-care (01) | DRG 776 ==
LOC: ED 13:31 → LD 15:02 → OBSVTOIN 15:02 → OB 02-27 12:06
PROVIDERS: ADMIT Obstetrics & Gynecology; ATTEND Obstetrics & Gynecology
DX: O11.5 Pre-existing hypertension with pre-eclampsia, complicating the puerperium (principal); Z20.822 Contact with and (suspected) exposure to COVID-19; O99.53 Diseases of the respiratory system complicating the puerperium; O99.345 Other mental disorders complicating the puerperium; F53.0 Postpartum depression; I16.0 Hypertensive urgency; J45.909 Unspecified asthma, uncomplicated; Z88.6 Allergy status to analgesic agent
CPT/HCPCS: 36415; 70450; 80053; 81001; 83880; 84484; 84550; 85027; 87086; 93005; 93970; G0378; J3490; J0360; J7120; Q0177; U0003